=== PATIENT | male | born 1945 | race Two or more races ===

== ENCOUNTER → 2016-07-13 | Outpatient (CLI) | payer OTHER, MEDICARE ==
--- NOTE | 2016-07-13 16:22 | US ---
Ultrasound Venous Duplex Doppler right Arm History: Arm pain. I 48.91, M 79.639, M 79.89, pain and swelling. Findings: Ultrasound venous duplex/Doppler imaging of right internal jugular vein, subclavian vein, a xillary vein, cephalic vein, brachial vein, basilic vein, radial vein, and ulnar veins demonstrate no rmal compressibility, color flow, and Doppler flow without evidence of deep venous thrombosis. Impression: No deep venous thrombosis right arm. Findings and recommendations left with DILLON COLEY at 16:20 hour, 07/13/2016. Final report concurs with initial preliminary interpretation.
== END ==
LOC: FIMAGING 15:06
PROVIDERS: ATTEND Family Medicine
DX: M79.631 Pain in right forearm (principal); I48.91 Unspecified atrial fibrillation

== ENCOUNTER → 2016-07-13 | Outpatient (CLI) | payer OTHER, MEDICARE | LOC: BHFA 13:45 | PROVIDERS: ATTEND Internal Medicine Interventional Cardiology | DX: I48.91 Unspecified atrial fibrillation (principal) ==

== ENCOUNTER → 2016-07-28 | Outpatient (CLI) | payer OTHER, MEDICARE | LOC: BHFA 14:45 | PROVIDERS: ATTEND Internal Medicine Interventional Cardiology | DX: I48.91 Unspecified atrial fibrillation (principal); F41.9 Anxiety disorder, unspecified ==

== ENCOUNTER 2016-08-02 11:37 | Day surgery (SDC) | payer OTHER, MEDICARE ==
[2016-08-02] MEDS ORDERED: fentaNYL 100 MCG/2 ML INJ IVP ONE (11:47)
[2016-08-02] MEDS ORDERED: MIDAZOLAM 2 MG/2 ML VIAL IVP ONE (11:47)
[2016-08-02] MEDS ORDERED: PROPOFOL 200 MG/20 ML VIAL IVP ONE (11:47)
[2016-08-02] MEDS ORDERED: NS 500 ML IV ONE (11:47)
--- NOTE | 2016-08-02 12:11 | CPEKG ---
Heart Rate: 104 RR Interval: 577 QRSD Interval: 96 QT Interval: 344 QTC Interval: 453 QRS [place]: -57 T Wave [place]: 76 EKG Severity - ABNORMAL ECG - EKG Impression: ATRIAL FIBRILLATION VERSUS ATRIAL TACHYCARDIA EKG Impression: VENTRICULAR BIGEMINY EKG Impression: LEFT AXIS DEVIATION EKG Impression: LOW VOLTAGE IN FRONTAL LEADS EKG Impression: CONSIDER POSTERIOR INFARCT Electronically Signed By: Frank Etienne 03-Aug-2016 08:58:19
[2016-08-02 12:32] LABS: APTT 35.1 SEC (23.0-38.0); INR 1.47 (0.83-1.16); PROTIME(PATIENT) 17.8 SEC (12.0-15.0)
[2016-08-02 12:42] LABS: ANION GAP 10 mEq/L (8-16); CALCIUM 9.1 mg/dL (8.5-10.4); CARBON DIOXIDE 22 mEq/l (22-31); CHLORIDE 108 mEq/L (97-110); CREATININE 0.9 mg/dL (0.7-1.3); GLOMERULAR FILTRATION RATE > 60; GLUCOSE 105 mg/dL (70-100); MAGNESIUM 1.9 mg/dL (1.6-2.3); POTASSIUM 4.4 mEq/L (3.5-5.2); SODIUM 140 mEq/L (134-144)
[2016-08-02] MEDS ORDERED: PROPOFOL 200 MG/20 ML VIAL ONE (12:55)
--- NOTE | 2016-08-02 13:22 | CPEKG ---
Heart Rate: 84 RR Interval: 714 P-R Interval: 228 QRSD Interval: 98 QT Interval: 384 QTC Interval: 454 P [place]: 66 QRS [place]: 103 T Wave [place]: 42 EKG Severity - ABNORMAL ECG - EKG Impression: SINUS TACHYCARDIA EKG Impression: PAIRED VENTRICULAR PREMATURE COMPLEXES EKG Impression: FIRST DEGREE AV BLOCK EKG Impression: RIGHT AXIS DEVIATION EKG Impression: LOW VOLTAGE IN FRONTAL LEADS Electronically Signed By: Frank Etienne 03-Aug-2016 08:56:38
--- NOTE | 2016-08-02 13:24 | PDTEE1 ---
VINCE Cardioversion Procedure Indications: Atrial Fibrillation Consent: Signed and in Chart Anticoagulation: [place] Procedural Details: Pads were placed in anterior-posterior position. Synchronized cardioversion attempt #1: 200J Results: Normal sinus rhythm Conclusions: Successful Cardioversion (Follow-up EKG 1 week. Continue chronic anticoagulation for at least 30 days.) Patient Problems: Problems Problem Status Onset Tobacco abuse Acute Pseudogout Acute Anxiety and depression Acute Diarrhea, infectious, adult Acute Clostridium difficile infection Acute
== END 2016-08-02 15:15 | disposition home or self-care (01) ==
LOC: FCATH 11:37
PROVIDERS: ATTEND Internal Medicine Interventional Cardiology
PROC: 5A2204Z Restoration of Cardiac Rhythm, Single (ICD-10-PCS; principal; 2016-08-02)
DX: I48.91 Unspecified atrial fibrillation (principal); Z86.711 Personal history of pulmonary embolism; N40.0 Benign prostatic hyperplasia without lower urinary tract symptoms; M54.12 Radiculopathy, cervical region; Z86.010 Personal history of colon polyps; Z98.1 Arthrodesis status; F17.210 Nicotine dependence, cigarettes, uncomplicated
CPT/HCPCS: J2704

== ENCOUNTER → 2016-08-09 | Outpatient (CLI) | payer OTHER, MEDICARE | LOC: BHFA 11:00 | PROVIDERS: ATTEND Internal Medicine Cardiovascular Disease | DX: I48.0 Paroxysmal atrial fibrillation (principal); I49.3 Ventricular premature depolarization; I49.8 Other specified cardiac arrhythmias ==

== ENCOUNTER 2016-10-03 11:28 | Inpatient (IN) | payer OTHER, MEDICARE ==
[2016-10-03 12:43] LABS: PROTIME(PATIENT) 71.6 SEC (12.0-15.0)
[2016-10-03 12:48] LABS: INR 8.36 (0.83-1.16)
--- NOTE | 2016-10-03 12:53 | EDPHY ---
H & P Stated Complaint: l calf pain here to r/o clot - Personal History Current Tetanus/Diphtheria Vaccine: Yes Tetanus Vaccine Date: 2012 - Medical/Surgical History Hx Asthma: No Hx Chronic Respiratory Disease: Yes Hx Diabetes: No Hx Cardiac Disease: Yes Hx Renal Disease: No Hx Cirrhosis: No Hx Alcoholism: No Hx HIV/AIDS: No Hx Splenectomy or Spleen Trauma: No Other PMH: hx PE 1990, COPD, sepsis 12/2012 s/p tooth extraction, BPH, GERD, pseudo gout with surgery 08/14, spinal fusion prostate enlargement new, new chf 05/16, Cdiff 11/15 smoker and wearing a patch new bilat eye burn from non work related welding injury 12/06/13 - Social History Smoking Status: Current every day smoker <Porfirio Baez - Last Filed: 10/03/16 13:12> <Les Gonzalez - Last Filed: 10/03/16 19:26> Time Seen by Provider: 10/03/16 11:38 HPI/ROS: Chief complaint: Left calf pain History of present illness: This is a 71-year-old male on Coumadin for atrial fibrillation with a remote history of a PE in the mid 90s who presents to the emergency department for left calf pain. Patient reports the onset of symptoms over the last 3 days. He states it began after moving sheds around his property. Symptoms are slowly worsening. He denies associated signs or symptoms including no history of direct trauma, no abnormal coolness or paresthesias in the leg. No report of chest pain, shortness of breath or cough. No fevers. Review of systems: A 10 point review of systems was obtained and other than described above was negative (Porfirio Baez) - Physical Exam Exam: General Appearance: Alert, nontoxic. Eyes: Pupils equal and round no injection. Respiratory: Chest is non tender, lungs are clear to auscultation. Cardiovascular: regular rate and rhythm. DP and PT pulses 2+. Gastrointestinal: Abdomen is soft and non tender, no masses, bowel sounds normal. Musculoskeletal: Edema to the left calf as compared to the right. Tenderness to palpation over the left calf. Skin: No rashes or lesions. Neurologic: Sensation intact throughout the left lower extremity. (Porfirio Baez) Constitutional: Initial Vital Signs Temperature (C) 36.8 C 10/03/16 11:33 Heart Rate 77 10/03/16 11:33 Respiratory Rate 20 10/03/16 11:33 Blood Pressure 156/93 H 10/03/16 11:33 O2 Sat (%) 92 10/03/16 11:33 O2 Delivery Mode Room Air Allergies/Adverse Reactions: No Known Allergies Allergy (Unverified 10/03/16 11:30) Home Medications: Medication Instructions Recorded Cholecalciferol Vit D3 [Vitamin D3 4,000 units PO DAILY 10/03/16 2000 units tab (OTC)] Cyanocobalamin [Vitamin B12 (*)] 2,000 mcg PO DAILY 10/03/16 Herbals/Supplements -Info Only 1 ea PO DAILY 10/03/16 LORazepam [Ativan (*)] 1 mg PO BID 10/03/16 Pantoprazole Sodium [Protonix 40mg 40 mg PO BID 10/03/16 (*)] Percocet 5/325 (*) 1.5 tab PO BID PRN 10/03/16 Pregabalin [LYRICA] 100 mg PO TID 10/03/16 Warfarin Sodium [Coumadin 5MG (*)] 5 mg PO DAILY 10/03/16 Medical Decision Making - Diagnostics Imaging: Discussed imaging studies w/ on call Radiologist <Porfirio Baez - Last Filed: 10/03/16 13:12> Consult/Admit Bed Type: [facility] [address], [place] [address] <Les Gonzalez - Last Filed: 10/03/16 19:26> - Diagnostics Imaging Results: Imaging Impressions Extremity Venous Study 10/03/16 11:43 Impression: 1. Left proximal calf hematoma. 2. No deep venous thrombosis left leg. Findings discussed with Emergency Department physician's pharmacy affairs assistant, Porfirio Baez, at 1245 hours, 10/03/2016. Final report concurs with initial preliminary interpretation. Differential Diagnosis: Patient is discussed with my secondary supervising physician Dr. Les Gonzalez. Patient presents to the emergency department for left leg pain. His leg is neurovascularly intact. Ultrasound did not show DVT but a large hematoma. He is significantly supratherapeutic on his Coumadin with an INR of over 8. Patient will be admitted to the hospitalist service for reversal of his Coumadin. Plan has been discussed with the patient and family who voiced understanding and agreement with it. (Porfirio Baez) Other Provider: PHYSICIAN DOCUMENTATION: The patient was evaluated and managed by the Physician [employer] Ax Consultant and myself. I have reviewed the chart and agree with the findings and plan of care as documented. In addition, I examined the patient myself at 1310. History confirmed as nontraumatic left leg pain, on Coumadin for primarily for atrial fibrillation. Physical findings as follows: Normal motor and sensory in the left foot. Dorsalis pedis pulse intact. Compartments soft. Discussed with Dr. Tavares by phone who requests plasma and not PCC. Vitamin K 10 IV, 2 units fresh frozen plasma. Does not appear life- threatening. Does not have compartment syndrome at this time. Seen personally by Dr. Garcia in the emergency department. I am the secondary supervising physician. (Les Gonzalez) - Data Points Laboratory Results: Laboratory Results 10/03/16 11:55 10/03/16 11:55 10/03/16 10/03/16 10/03/16 11:55 11:55 11:55 WBC 7.67 10^3/uL 10^3/uL (3.80-9.50) RBC 5.30 10^6/uL 10^6/uL (4.40-6.38) Hgb 17.5 g/dL g/dL (13.7-17.5) Hct 50.8 % % (40.0-51.0) MCV 95.8 fL fL (81.5-99.8) MCH 33.0 pg pg (27.9-34.1) MCHC 34.4 g/dL g/dL (32.4-36.7) RDW 13.1 % % (11.5-15.2) Plt Count 193 10^3/uL 10^3/uL (150-400) MPV 8.9 fL fL (8.7-11.7) Neut % (Auto) 71.5 % % (39.3-74.2) Lymph % (Auto) 17.5 % % (15.0-45.0) [place] % (Auto) 8.7 % % (4.5-13.0) Eos % (Auto) 1.0 % % (0.6-7.6) Baso % (Auto) 0.9 % % (0.3-1.7) Nucleat RBC Rel Count 0.0 % % (0.0-0.2) Absolute Neuts (auto) 5.48 10^3/uL 10^3/uL (1.70-6.50) Absolute Lymphs (auto) 1.34 10^3/uL 10^3/uL (1.00-3.00) Absolute Monos (auto) 0.67 10^3/uL 10^3/uL (0.30-0.80) Absolute Eos (auto) 0.08 10^3/uL 10^3/uL (0.03-0.40) Absolute Basos (auto) 0.07 10^3/uL 10^3/uL (0.02-0.10) Absolute Nucleated RBC 0.00 10^3/uL 10^3/uL (0-0.01) Immature Gran % 0.4 % % (0.0-1.1) Immature Gran # 0.03 10^3/uL 10^3/uL (0.00-0.10) PT 71.6 SEC H SEC (12.0-15.0) INR 8.36 H* (0.83-1.16) Sodium 137 mEq/L mEq/L (134-144) Potassium 4.5 mEq/L mEq/L (3.5-5.2) Chloride 106 mEq/L mEq/L (97-110) Carbon Dioxide 20 mEq/l L mEq/l (22-31) Anion Gap 11 mEq/L mEq/L (8-16) BUN 14 mg/dL mg/dL (7-23) Creatinine 0.8 mg/dL mg/dL (0.7-1.3) Estimated GFR > 60 Glucose 102 mg/dL H mg/dL (70-100) Calcium 9.0 mg/dL mg/dL (8.5-10.4) Medications Given: Discontinued Medications Phytonadione 10 mg/ Sodium (Chloride) 51 mls @ 102 mls/hr IV ONCE ONE Stop: 10/03/16 13:34 Last Admin: 10/03/16 13:31 Dose: 51 mls Departure <Porfirio Baez - Last Filed: 10/03/16 13:12> <Les Gonzalez - Last Filed: 10/03/16 19:26> - Departure Disposition: [facility] Acute Clinical Impression: Supratherapeutic INR Hematoma of left lower extremity Qualifiers: Encounter type: initial encounter Qualified Code(s): S80.12XA - Contusion of left lower leg, initial encounter Condition: Good
[2016-10-03] MEDS ORDERED: PHYTONADIONE 10 MG in NS 50 ML IV ONE (13:05)
[2016-10-03 13:11] LABS: % IMMATURE GRANULYOCYTES 0.4 % (0.0-1.1); ABSOLUTE IMMATURE GRANULOCYTES 0.03 10^3/uL (0.00-0.10); ADD DIFF? NO; ADD MORPH? NO; ADD SCAN? NO; ATYPICAL LYMPHOCYTE FLAG 0 (0-99); FRAGMENT RBC FLAG 0 (0-99); HEMATOCRIT 50.8 % (40.0-51.0); HEMOGLOBIN 17.5 g/dL (13.7-17.5); LEFT SHIFT FLG 0 (0-99); LIPEMIA HEMOLYSIS FLAG 90 (0-99); MEAN CELL HEMOGLOBIN CONCENTR. 34.4 g/dL (32.4-36.7); MEAN CELL VOLUME 95.8 fL (81.5-99.8); MEAN PLATELET VOLUME 8.9 fL (8.7-11.7); PLATELET CLUMPS FLAG 0 (0-99); PLATELET COUNT 193 10^3/uL (150-400); RED CELL DISTRIBUTION WIDTH 13.1 % (11.5-15.2)
[2016-10-03 13:20] LABS: ANION GAP 11 mEq/L (8-16); CARBON DIOXIDE 20 mEq/l (22-31); CHLORIDE 106 mEq/L (97-110); CREATININE 0.8 mg/dL (0.7-1.3); GLOMERULAR FILTRATION RATE > 60; GLUCOSE 102 mg/dL (70-100); POTASSIUM 4.5 mEq/L (3.5-5.2); SODIUM 137 mEq/L (134-144)
[2016-10-03] MEDS ORDERED: ONDANSETRON DISINTEGRATING 4 MG TAB PO PRN (14:22)
[2016-10-03] MEDS ORDERED: HYDROmorphONE/DILAUDID 1 MG/ML SYR IVP PRN (14:22)
[2016-10-03] MEDS ORDERED: ONDANSETRON 4 MG/2 ML VIAL IVP PRN (14:22)
[2016-10-03] MEDS ORDERED: ACETAMINOPHEN 325 MG TAB PO PRN (14:22)
[2016-10-03] MEDS ORDERED: OXYCODONE/APAP 5/325 TAB PO PRN (16:01)
[2016-10-03] MEDS: oxyCODONE IR 5 MG TAB PO PRN ×2 (16:47→21:22)
[2016-10-03] MEDS: PREGABALIN 100 MG CAP PO SCH ×2 (16:47→21:22)
--- NOTE | 2016-10-03 16:59 | PDGENHP ---
History and Physical - Chief Complaint leg pain - History of Present Illness 71 yo M with PMH of a fib as well as remote hx of PE on chronic AC presenting with leg pain and swelling in the setting of INR of 8. Patient was recently switched to coumadin from eliquis by his fitness worker, about 2 weeks ago, as patient was concerned that the levels of eliquis couldn't be checked and he was having issues with easy bruising. He thought he was doing ok with this but had not checked his INR level recently. He has banged his lower left leg a couple of times this week, but today noted that it was swelling and tight and very painful. The pain began to extend up his thigh as well. He was having difficulty walking. He has not had loss of sensation or coldness in the foot or leg. It seems to hurt more when it is elevated, and is improved with walking. He has not had fever or chills. He has not have any other new complaints. History Information - Allergies/Home Medication List Allergies/Adverse Reactions: No Known Allergies Allergy (Unverified 10/03/16 11:30) Home Medications: Cholecalciferol Vit D3 [Vitamin D3 2000 units tab (OTC)] 4,000 units PO DAILY [Last Taken 10/03/16] Cyanocobalamin [Vitamin B12 (*)] 2,000 mcg PO DAILY 10/03/16 [Last Taken ] Herbals/Supplements -Info Only 1 ea PO DAILY 10/03/16 [Last Taken Unknown] LORazepam [Ativan (*)] 1 mg PO BID 10/03/16 [Last Taken 10/03/16] Pantoprazole Sodium [Protonix 40mg (*)] 40 mg PO BID 10/03/16 [Last Taken ] Percocet 5/325 (*) 1.5 tab PO BID PRN 10/03/16 [Last Taken 10/03/16] Pregabalin [LYRICA] 100 mg PO TID 10/03/16 [Last Taken 10/03/16] Warfarin Sodium [Coumadin 5MG (*)] 5 mg PO DAILY 10/03/16 [Last Taken 10/03/16] I have personally reviewed and updated: family history, medical history, social history, surgical history - Past Medical History atrial fibrillation, CHF, COPD, GERD, pulmonary embolism (1990) Additional medical history: BPH. lumbar radiculopathy. pseudogout. c diff - Surgical History Reports: spinal surgery (spinal fusion) Additional surgical history: turp. elbow surgery. esophageal stricture dilation - Family History Positive for: non-pertinent - Social History Smoking Status: Current every day smoker Alcohol Use: Rarely Drug Use: None Additional social history: Review of Systems ROS: 10pt was reviewed & negative except for what was stated in HPI & below Physical Exam Temp Pulse Resp BP Pulse Ox 36.4 C 61 20 120/87 H 94 10/03/16 16:06 10/03/16 16:06 10/03/16 16:06 10/03/16 16:06 10/03/16 16:06 Constitutional: no apparent distress, appears nourished Eyes: PERRL Ears, Nose, Mouth, Throat: moist mucous membranes, hearing normal Cardiovascular: regular rate and rhythym, no murmur, rub, or gallop, edema Respiratory: no respiratory distress, no rales or rhonchi Gastrointestinal: normoactive bowel sounds, soft, non-tender abdomen Genitourinary: no bladder tenderness Skin: warm, normal color Musculoskeletal: full muscle strength, asymmetric calves, muscular tenderness Neurologic: AAOx3, sensation intact bilaterally, No weakness, No numbness Psychiatric: interacting appropriately, not anxious, not encephalopathic Lab Data & Imaging Review 10/03/16 11:55 10/03/16 11:55 WBC 7.67 10^3/uL (3.80-9.50) 10/03/16 11:55 RBC 5.30 10^6/uL (4.40-6.38) 10/03/16 11:55 Hgb 17.5 g/dL (13.7-17.5) 10/03/16 11:55 Hct 50.8 % (40.0-51.0) 10/03/16 11:55 MCV 95.8 fL (81.5-99.8) 10/03/16 11:55 MCH 33.0 pg (27.9-34.1) 10/03/16 11:55 MCHC 34.4 g/dL (32.4-36.7) 10/03/16 11:55 RDW 13.1 % (11.5-15.2) 10/03/16 11:55 Plt Count 193 10^3/uL (150-400) 10/03/16 11:55 MPV 8.9 fL (8.7-11.7) 10/03/16 11:55 Neut % (Auto) 71.5 % (39.3-74.2) 10/03/16 11:55 Lymph % (Auto) 17.5 % (15.0-45.0) 10/03/16 11:55 [place] % (Auto) 8.7 % (4.5-13.0) 10/03/16 11:55 Eos % (Auto) 1.0 % (0.6-7.6) 10/03/16 11:55 Baso % (Auto) 0.9 % (0.3-1.7) 10/03/16 11:55 Nucleat RBC Rel Count 0.0 % (0.0-0.2) 10/03/16 11:55 Absolute Neuts (auto) 5.48 10^3/uL (1.70-6.50) 10/03/16 11:55 Absolute Lymphs (auto) 1.34 10^3/uL (1.00-3.00) 10/03/16 11:55 Absolute Monos (auto) 0.67 10^3/uL (0.30-0.80) 10/03/16 11:55 Absolute Eos (auto) 0.08 10^3/uL (0.03-0.40) 10/03/16 11:55 Absolute Basos (auto) 0.07 10^3/uL (0.02-0.10) 10/03/16 11:55 Absolute Nucleated RBC 0.00 10^3/uL (0-0.01) 10/03/16 11:55 Immature Gran % 0.4 % (0.0-1.1) 10/03/16 11:55 Immature Gran # 0.03 10^3/uL (0.00-0.10) 10/03/16 11:55 PT 71.6 SEC (12.0-15.0) H 10/03/16 11:55 INR 8.36 (0.83-1.16) H* 10/03/16 11:55 Sodium 137 mEq/L (134-144) 10/03/16 11:55 Potassium 4.5 mEq/L (3.5-5.2) 10/03/16 11:55 Chloride 106 mEq/L (97-110) 10/03/16 11:55 Carbon Dioxide 20 mEq/l (22-31) L 10/03/16 11:55 Anion Gap 11 mEq/L (8-16) 10/03/16 11:55 BUN 14 mg/dL (7-23) 10/03/16 11:55 Creatinine 0.8 mg/dL (0.7-1.3) 10/03/16 11:55 Estimated GFR > 60 10/03/16 11:55 Glucose 102 mg/dL (70-100) H 10/03/16 11:55 Calcium 9.0 mg/dL (8.5-10.4) 10/03/16 11:55 Patient ABO/Rh A POSITIVE 10/03/16 13:22 Visualized and Interpreted imaging results: Yes Interpretation: US lower extremity with left proximal calf hematoma Assessment & Plan Assessment: Hematoma of left lower extremity (Acute) Supratherapeutic INR (Acute) 71 yo M with hx of a fib on chronic AC pw INR of 8 and calf hematoma # calf hematoma: extensive with significant tenderness on exam but pulses present, warm and normal ROM present. INR reversed as next. Surgery consulted and do not believe this is c/w compartment syndrome but they will follow while he is in house. Will monitor overnight # supratherapeutic INR: patient newly on coumadin and likely has been on too high of a dose and has not had sufficient time on medication to reach steady state. Has received vitamin K/FFP and will repeat INR to be sure it is trending down. Consulted cardiology as next # a fib: sounds as if he is in SR currently, will check ecg. Not on chronic rate control medications by current med list. Cardiology consulted. Chads vasc low so unclear if he will continue to require AC or could transition to asa, will defer to cardiology however. # hx of PE: remote, as above # copd: chronic w/o e/o acute exacerbation # dispo: observation status, will likely need < 48 hours stay for eval/mgmt of above Patient new to my care. Old records reviewed and summarized as above. Care plan reviewed with ER doctor, cardiology and surgery.
--- NOTE | 2016-10-03 18:13 | CPEKG ---
Heart Rate: 77 RR Interval: 779 P-R Interval: 220 QRSD Interval: 108 QT Interval: 392 QTC Interval: 444 P [place]: 24 QRS [place]: -51 T Wave [place]: 0 EKG Severity - ABNORMAL ECG - EKG Impression: SINUS RHYTHM EKG Impression: FIRST DEGREE AV BLOCK EKG Impression: BORDERLINE IVCD WITH LAD EKG Impression: LOW VOLTAGE IN FRONTAL LEADS EKG Impression: BORDERLINE T ABNORMALITIES, INFERIOR LEADS Electronically Signed By: Frank Etienne 04-Oct-2016 14:46:22
[2016-10-03 18:23] LABS: INR 2.68 (0.83-1.16); PROTIME(PATIENT) 28.8 SEC (12.0-15.0)
[2016-10-03] MEDS: LORazepam 1 MG TAB PO SCH (21:18)
[2016-10-03] MEDS: PANTOPRAZOLE SODIUM 40 MG TAB PO SCH (21:18)
[2016-10-03] MEDS: NICOTINE 21 MG/24 HR PATCH TD SCH (21:18)
[2016-10-04 06:13] LABS: % IMMATURE GRANULYOCYTES 0.7 % (0.0-1.1); ABSOLUTE IMMATURE GRANULOCYTES 0.04 10^3/uL (0.00-0.10); ADD DIFF? NO; ADD MORPH? NO; ADD SCAN? NO; ATYPICAL LYMPHOCYTE FLAG 10 (0-99); FRAGMENT RBC FLAG 0 (0-99); HEMATOCRIT 46.7 % (40.0-51.0); LEFT SHIFT FLG 0 (0-99); LIPEMIA HEMOLYSIS FLAG 90 (0-99); MEAN CELL HEMOGLOBIN 33.3 pg (27.9-34.1); MEAN CELL HEMOGLOBIN CONCENTR. 34.3 g/dL (32.4-36.7); MEAN CELL VOLUME 97.1 fL (81.5-99.8); MEAN PLATELET VOLUME 9.1 fL (8.7-11.7); PLATELET CLUMPS FLAG 0 (0-99); PLATELET COUNT 155 10^3/uL (150-400); RED BLOOD CELL COUNT 4.81 10^6/uL (4.40-6.38); RED CELL DISTRIBUTION WIDTH 13.1 % (11.5-15.2)
[2016-10-04 06:27] LABS: INR 4.06 (0.83-1.16); PROTIME(PATIENT) 40.2 SEC (12.0-15.0)
[2016-10-04] MEDS: PANTOPRAZOLE SODIUM 40 MG TAB PO SCH ×2 (06:30→20:37)
[2016-10-04] MEDS: PREGABALIN 100 MG CAP PO SCH ×3 (06:30→20:37)
[2016-10-04] MEDS: oxyCODONE IR 5 MG TAB PO PRN ×6 (06:30→23:23)
[2016-10-04 06:36] LABS: ANION GAP 8 mEq/L (8-16); CALCIUM 8.7 mg/dL (8.5-10.4); CARBON DIOXIDE 23 mEq/l (22-31); CHLORIDE 105 mEq/L (97-110); CREATININE 0.8 mg/dL (0.7-1.3); GLOMERULAR FILTRATION RATE > 60; GLUCOSE 97 mg/dL (70-100); POTASSIUM 4.2 mEq/L (3.5-5.2); SODIUM 136 mEq/L (134-144)
[2016-10-04] MEDS ORDERED: PHYTONADIONE 10 MG in NS 50 ML IV ONE (08:59)
[2016-10-04] MEDS: CYANO/VITAMIN B12 1000 MCG TAB PO SCH (09:17)
[2016-10-04] MEDS: NICOTINE 21 MG/24 HR PATCH TD SCH (09:17)
[2016-10-04] MEDS: CHOLECALCIFEROL VIT D3 2,000 UNITS TAB/CAP PO SCH (09:17)
[2016-10-04] MEDS: LORazepam 1 MG TAB PO SCH ×2 (09:18→20:37)
--- NOTE | 2016-10-04 09:35 | PDCARPN ---
Cardiology Progress Note Chief Complaint: Left lower extremity pains. Initial concerns (given history of PE) for DVT. Assessment/Plan: Assessment: Patient is a 71 y/o male, known to [facility] (Dr. Venu Hatfield), with history of pAF (on coumadin at present with [id number] score of 2), COPD, depression, BPH s/p TURP, arthralgias, and esophageal stricture, who presented to [facility] yesterday with complaints of left lower extremity pains. Initial concerns about DVT with history of pulmonary embolism (1990), but labs revealed a supratherapeutic INR ( >8). Ultrasound with large haematoma noted ([id number]). Given the INR and this finding, Trauma service reportedly assessed the leg for compartment syndrome. Reports that this was not noted at the time of assesssment in the ER. Pains to the leg were noted overnight, and the leg continues to be painful and rather taught. Distal pulses were noted today. No cardiovascular complaints of chest pains or pressure. No PND or orthopnea. From a cardiac perspective, patient was previously on NOAC therapy (Eliquis), but was concerned about the inability to monitor levels, and was switched to Coumadin (dosed at 5 mg per day). No reassessment of the INR was obtained for reasons not clear. INR last night was 2.68 (down from 8.36), but today, INR was elevated to 4.06. Telemetry with normal sinus rhythm yesterday. Plan: (1) Continue hold on coumadin/Warfarin - uncertain with Vit K and FFP why the INR was elevated as is has today - would ensure further Vit K and reassessment of the INR tonight (2) Concerns about compartment symptoms remain with the tension that is noted on physical examination (3) Given the left lower extremity condition and current normal sinus rhythm, would maintain hold on anticoagulation (4) Trauma surgery should reassess patient for compartment syndrome ALANA Subjective: No active cardiovascular complaints. Chief complaint continues to be left lower extremity (calf) pains. Reviewed/Discussed With: hospitalist, multidisciplinary team Time Spent With Patient: 20 minutes Objective: Vital Signs (8 Hrs) Temp Pulse Resp BP Pulse Ox 10/04/16 07:37 36.6 C 75 22 H 141/80 H 91 L 10/04/16 04:00 36.9 C 72 17 136/75 H 91 L Intake/Output (24 Hrs) 10/03/16 10/04/16 10/05/16 05:59 05:59 05:59 Intake Total 900 500 Output Total 2400 200 Balance -1500 300 Intake: Oral (ml) 400 500 IV Infused (ml) 250 Fresh Frozen Plasma (ml) 250 Output: Urine (ml) 2400 200 Urinal 2400 200 Other: Weight 74.888 kg Intake Quantity Yes Sufficient Number of Voids 2 Urinal 2 Result Diagrams: 10/04/16 05:12 10/04/16 05:12 Cardiac Labs: Laboratory Tests 10/03/16 10/03/16 10/04/16 11:55 18:00 05:12 INR 8.36 H* 2.68 H 4.06 H Telemetry: normal sinus rhythm was noted yesterday on monitor Echocardiogram: not performed. - Physical Exam Constitutional: WDWN, healthy appearing, general pain Eyes: PERRL, EOMI Ears, Nose, Mouth, Throat: moist mucous membranes Cardiovascular: regular rate and rhythm, no murmurs, no rubs Peripheral Pulses: 1+: dorsalis-pedis (L), 2+: dorsalis-pedis (R) Respiratory: clear to auscultate bilat, no crackles, no wheezes Gastrointestinal: normoactive bowel sounds Skin: no rashes, no abrasions, no ulcers, other (tension and warmth to palpation to the left calf) Musculoskeletal: muscular tenderness Neurologic: AAOx3, CN II-XII grossly intact Psychiatric: cooperative, interactive, following commands ICD10 Worksheet Patient Problems: Problems Problem Status Onset Hematoma of left lower extremity Acute Supratherapeutic INR Acute Anxiety and depression Acute Clostridium difficile infection Acute Diarrhea, infectious, adult Acute Pseudogout Acute Tobacco abuse Acute
--- NOTE | 2016-10-04 10:43 | GCON ---
[f rep st] CONSULTATION REFERRING PHYSICIAN: Michelle Tavares MD REASON FOR CONSULTATION: Evaluate for compartment syndrome. HISTORY OF PRESENT ILLNESS: This patient was admitted yesterday. His anticoagulation had been prolonged, and he had a several-day history of a distal thigh hematoma which had progressed down to the proximal calf. I saw the patient briefly and unofficially in the ER yesterday just so I would understand his baseline in case further evaluation was needed. At that point, he had a fullness in his distal thigh but it was most prominent in the subcutaneous tissue of his posterior proximal calf. He had normal capillary refill. He had some swelling at the level of the ankle. It was difficult to get a posterior tibial pulse at that time, but dorsalis pedis was full and bounding. Capillary refill was normal. His INR was 8, and he did receive PCC. His INR dropped to 0.6 last evening at 6 p.m. This morning it is back up to 4.06 which is not unexpected. He has received, as I understand, vitamin K as well. I was asked to come see him today to make sure we do not have a progressive compartment issue. On examining the foot, it is warm to the touch. He does not have any pain on plantar or dorsiflexion of his foot. Capillary refill is less than 2 seconds. There is a bounding dorsalis pedis pulse. His leg was elevated further. At this point, with a prolonged INR and an essentially normal examination, I do not see an advantage in placing a [place] needle as it may cause more bleeding. The fluid is most probably in subcutaneous tissue in that it seems to have moved by gravity down from the distal thigh. Certainly, if it becomes necessary, we can obtain a CAT scan to find the exact location of the fluid. I doubt it is liquid at this time, so I do not think that aspiration would be helpful, and for that reason, an ultrasound has not been ordered. I recommend that we follow him serially, that we elevate his lower leg above the level of his heart. I recommend the use a heating pad to promote reabsorption of the blood, and that we will continue to correct his anticoagulation. At this point, I do not detect an acute issue which would require surgical intervention. /[id number]/MODL MTDD
--- NOTE | 2016-10-04 12:36 | HOSPPROG ---
Hospitalist Progress Note Assessment/Plan: 71 yo M w/hx of a fib as well as remote PE on chronic AC presenting with supratherapeutic INR and leg pain and large calf hematoma # calf hematoma: overnight swelling has increased to the foot and the calf is more tense, INR reversed yesterday but has trended back up today to 4. Surgery consulted and patient evaluated at bedside with Dr. Garcia-foot is warm, cap refill normal, ROM only slightly decreased, pain moderate and do not suspect compartment syndrome at this time. Will keep leg elevated, warm compresses and continue mgmt of INR as next. # supratherapeutic INR: patient newly on coumadin and presented with INR of 8-- sounds as if he has not had follow up since initiating med (previously on eliquis). Today INR up again to 4, will give vitamin K again, recheck this afternoon. Will continue to hold AC and defer to cardiology when to resume. In terms of PE in 1990, he has been off of AC for that for many years and does not need tx for remote, reportedly post-operative, PE. # a fib: currently in SR, reversing AC as above, first episode in July of this year and started on eliquis initially, switched to coumadin 2 weeks ago. His CHADS-vasc score is 1 for age only so unclear that patient truly requires AC for this at any rate. Again, cardiology involved and can decide after dc, regardless he needs AC reversed now. # hx of PE: remote, as above, no longer requiring tx # copd: chronic w/o e/o acute exacerbation # dispo: IP status, will need > 48 hours stay for eval/mgmt of above Care plan reviewed with general surgeon at bedside as well as with cardiology and care plan reviewed with patient's daughter Subjective: patient notes that his leg is more swollen today and a bit more painful, able to walk and rom is unchanged Objective: Vital Signs Temp Pulse Resp BP Pulse Ox 36.6 C 68 18 145/90 H 91 L 10/04/16 11:27 10/04/16 11:27 10/04/16 11:27 10/04/16 11:27 10/04/16 11:27 Laboratory Results 10/04/16 05:12 10/04/16 05:12 05/02/17 05/03/17 05/04/17 05:59 05:59 05:59 Intake Total 900 500 Output Total 2400 200 Balance -1500 300 PT 40.2 SEC (12.0-15.0) H D 10/04/16 05:12 INR 4.06 (0.83-1.16) H 10/04/16 05:12 awake alert nad anicteric op clear rrr no mrg cta b soft nt nd lle tense to knee, warm, foot warm, cap refill 1-2 sec, dp pulse palpable oriented appropriate - Time Spent With Patient Time Spent with Patient: greater than 35 minutes Time Spent with Patient: Greater than 35 minutes spent on this patients care, greater than 50% of time spent counseling, educating, and coordinating care regarding the above mentioned plan. ICD10 Worksheet Patient Problems: Problems Problem Status Onset Hematoma of left lower extremity Acute Supratherapeutic INR Acute Anxiety and depression Acute Clostridium difficile infection Acute Diarrhea, infectious, adult Acute Pseudogout Acute Tobacco abuse Acute
[2016-10-04 14:23] LABS: INR 1.99 (0.83-1.16); PROTIME(PATIENT) 22.7 SEC (12.0-15.0)
[2016-10-04 23:48] LABS: COLOR PALE YELLOW; LEUKOCYTE ESTERASE,URINE NEGATIVE (NEGATIVE); NITRITE,URINE NEGATIVE (NEGATIVE)
[2016-10-05] MEDS: TAMSULOSIN HCL 0.4 MG CAP PO SCH ×2 (00:03→08:23)
[2016-10-05] MEDS: oxyCODONE IR 5 MG TAB PO PRN ×4 (05:45→20:07)
[2016-10-05] MEDS: PANTOPRAZOLE SODIUM 40 MG TAB PO SCH ×2 (05:45→17:14)
[2016-10-05 05:52] LABS: INR 1.27 (0.83-1.16); PROTIME(PATIENT) 15.9 SEC (12.0-15.0)
[2016-10-05] MEDS: NICOTINE 21 MG/24 HR PATCH TD SCH (08:21)
[2016-10-05] MEDS: CHOLECALCIFEROL VIT D3 2,000 UNITS TAB/CAP PO SCH (08:22)
[2016-10-05] MEDS: CYANO/VITAMIN B12 1000 MCG TAB PO SCH (08:22)
[2016-10-05] MEDS: PREGABALIN 100 MG CAP PO SCH ×3 (08:23→20:07)
[2016-10-05] MEDS: LORazepam 1 MG TAB PO SCH ×2 (08:23→20:10)
--- NOTE | 2016-10-05 11:57 | PDCARPN ---
Cardiology Progress Note Chief Complaint: Ongoing discomfort to the left lower extremity...improvements reported Assessment/Plan: Assessment: 10-05-16 Patient has appreciated improvement in leg pains. Trauma with note and work up not suggestive of compartment syndrome. INR has normalized, and given the haematoma, and CVA risk (with atrial fibrillation) would maintain cessation of therapy for the time being. Fair sleep overnight. No cardiovascular complaints of chest pains or pressure. Pain meds have resulted in control of the discomfort to the left lower extremity. 10-04-16 Patient is a 71 y/o male, known to [facility] (Dr. Venu Hatfield), with history of pAF (on coumadin at present with [id number] score of 2), COPD, depression, BPH s/p TURP, arthralgias, and esophageal stricture, who presented to [facility] yesterday with complaints of left lower extremity pains. Initial concerns about DVT with history of pulmonary embolism (1990), but labs revealed a supratherapeutic INR ( >8). Ultrasound with large haematoma noted (10X4X2). Given the INR and this finding, Trauma service reportedly assessed the leg for compartment syndrome. Reports that this was not noted at the time of assesssment in the ER. Pains to the leg were noted overnight, and the leg continues to be painful and rather taught. Distal pulses were noted today. No cardiovascular complaints of chest pains or pressure. No PND or orthopnea. From a cardiac perspective, patient was previously on NOAC therapy (Eliquis), but was concerned about the inability to monitor levels, and was switched to Coumadin (dosed at 5 mg per day). No reassessment of the INR was obtained for reasons not clear. INR last night was 2.68 (down from 8.36), but today, INR was elevated to 4.06. Telemetry with normal sinus rhythm yesterday. Plan: (1) maintain cessation of anticoagulation - would consider resumption after outpatient follow up with either PCP or cardiology (2) Discharge planning Subjective: No cardiovascular complaints. Lower extremity pains are absent at present Time Spent With Patient: 15 minutes Objective: Vital Signs (8 Hrs) Temp Pulse Resp BP Pulse Ox 10/05/16 11:29 36.9 C 84 18 106/66 89 L 10/05/16 07:41 37.4 C 87 18 120/72 89 L 10/05/16 04:00 37.2 C 90 18 90/72 L 90 L Intake/Output (24 Hrs) 10/04/16 10/05/16 10/06/16 05:59 05:59 05:59 Intake Total 900 Output Total 2049 Balance -1150 Intake: Oral (ml) 900 Output: Urine (ml) 2049 Urinal 2049 Other: Intake Quantity Yes Sufficient Number of Voids Urinal 3 Result Diagrams: 10/04/16 05:12 10/04/16 05:12 Telemetry: Sinus tachycardia was noted this morning - Physical Exam Constitutional: WDWN, healthy appearing, no apparent distress Eyes: PERRL, EOMI Ears, Nose, Mouth, Throat: moist mucous membranes Cardiovascular: regular rate and rhythm (tachycardia this morning) Peripheral Pulses: 2+: dorsalis-pedis (R), dorsalis-pedis (L) Respiratory: clear to auscultate bilat, no crackles, no wheezes Gastrointestinal: normoactive bowel sounds Skin: other (tenderness to palpitation of the left lower extremity) Musculoskeletal: asymmetric calves, muscular tenderness Neurologic: AAOx3, CN II-XII grossly intact Psychiatric: cooperative, interactive, following commands ICD10 Worksheet Patient Problems: Problems Problem Status Onset Hematoma of left lower extremity Acute Supratherapeutic INR Acute Anxiety and depression Acute Clostridium difficile infection Acute Diarrhea, infectious, adult Acute Pseudogout Acute Tobacco abuse Acute
--- NOTE | 2016-10-05 14:47 | HOSPPROG ---
Hospitalist Progress Note Assessment/Plan: 71 yo M w/hx of a fib as well as remote PE on chronic AC presenting with supratherapeutic INR and leg pain and large calf hematoma. Today is my first encounter with the patient. Chart reviewed. # calf hematoma reviewed Dr Oscar's note not likely compartment syndrome/pain is less/ palpable pulses INR is 1.27 elevating his leg spoke with Dr Garcia and Dr Chino will see today # supratherapeutic INR resolved with treatment of Vitamin K was started recently on coumadin and presented w an INR of 8 hx of PE and hx of AFib will defer to cardiology as when to resume # a fib: reviewed quality assurance monitor and is in sinus rhythm CHADS-vasc score is 1 treatment per cardiology # hx of PE: remote, as above, no longer requiring tx # copd: chronic w/o e/o acute exacerbation # dispo: IP status, will need > 48 hours stay for eval/mgmt of above Subjective: Nicolas is worried about his left knee area/ sore from the swelling. Thinks the pain in his left leg is better. Objective: Vital Signs Temp Pulse Resp BP Pulse Ox 36.9 C 84 18 106/66 89 L 10/05/16 11:29 10/05/16 11:29 10/05/16 11:29 10/05/16 11:29 10/05/16 11:29 10/04/16 10/05/16 10/06/16 05:59 05:59 05:59 Intake Total 900 680 Output Total 2050 Balance -1150 680 PT 15.9 SEC (12.0-15.0) H 10/05/16 05:22 INR 1.27 (0.83-1.16) H 10/05/16 05:22 - Physical Exam Constitutional: uncomfortable Eyes: PERRL Ears, Nose, Mouth, Throat: hearing normal Cardiovascular: regular rate and rhythym Respiratory: no respiratory distress Gastrointestinal: normoactive bowel sounds Skin: other (left lower extremity, skin tight, has some ecchymosis around ankle , posterior calf area/ strong dp/pt pulses) Neurologic: AAOx3 Psychiatric: interacting appropriately, not anxious ICD10 Worksheet Patient Problems: Problems Problem Status Onset Hematoma of left lower extremity Acute Supratherapeutic INR Acute Anxiety and depression Acute Clostridium difficile infection Acute Diarrhea, infectious, adult Acute Pseudogout Acute Tobacco abuse Acute
[2016-10-05] MEDS ORDERED: LACTULOSE 20 GM/30 ML UDCUP PO PRN (16:09)
[2016-10-05] MEDS ORDERED: BISACODYL 10 MG SUPP PR PRN (16:09)
[2016-10-05] MEDS ORDERED: MAGNESIUM HYDROXIDE 30 ML UDCUP PO PRN (16:09)
[2016-10-05] MEDS: POLYETHYLENE GLYCOL 3350 17 GM PKT PO SCH (17:10)
[2016-10-05] MEDS: SENNOSIDES/DOCUSATE SODIUM TAB PO SCH (20:07)
--- NOTE | 2016-10-05 20:33 | SOAPPROG ---
SOAP Progress Note Assessment/Plan: Assessment: 71 MALE WITH A LEFT CALF HEMATOMA AFTER DIRECT INJURY WELL HIS INR WAS MARKEDLY ELEVATED / HE IS COMFORTABLE / VITAL SIGNS ARE STABLE AFEBRILE / LEFT CALF HEMATOMA IS TENDER AND REASONABLY TENSE BUT WITH FULL RANGE OF MOTION OF HIS FOOT AND FULL PULSES HEMATOCRIT IS STABLE AND INR IS DOWN TO NORMAL RISKS AND OPTIONS BEEN FULLY DISCUSSED INCLUDING DRAINAGE OF THE HEMATOMA VERSUS OBSERVATION Plan: WITH A PLAN IS CONTINUED OBSERVATION /DRAINAGE IF SYMPTOMS WORSEN / HOLD THE COUMADIN 10/05/16 20:31 Objective: Vital Signs Temp Pulse Resp BP Pulse Ox 36.9 C 90 19 108/59 L 91 L 10/05/16 19:51 10/05/16 19:51 10/05/16 19:51 10/05/16 19:51 10/05/16 19:51 10/04/16 10/05/16 10/06/16 05:59 05:59 05:59 Intake Total 900 680 Output Total 2050 400 Balance -1150 280 PT 15.9 SEC (12.0-15.0) H 10/05/16 05:22 INR 1.27 (0.83-1.16) H 10/05/16 05:22 ICD10 Worksheet Patient Problems: Problems Problem Status Onset Hematoma of left lower extremity Acute Supratherapeutic INR Acute Anxiety and depression Acute Clostridium difficile infection Acute Diarrhea, infectious, adult Acute Pseudogout Acute Tobacco abuse Acute
[2016-10-06 05:57] LABS: INR 1.25 (0.83-1.16); PROTIME(PATIENT) 15.7 SEC (12.0-15.0)
[2016-10-06] MEDS: oxyCODONE IR 5 MG TAB PO PRN ×5 (06:02→20:59)
[2016-10-06] MEDS: NICOTINE 21 MG/24 HR PATCH TD SCH (07:53)
[2016-10-06] MEDS: PREGABALIN 100 MG CAP PO SCH ×3 (07:54→20:59)
[2016-10-06] MEDS: CHOLECALCIFEROL VIT D3 2,000 UNITS TAB/CAP PO SCH (07:54)
[2016-10-06] MEDS: PANTOPRAZOLE SODIUM 40 MG TAB PO SCH ×3 (07:54→20:59)
[2016-10-06] MEDS: LORazepam 1 MG TAB PO SCH ×2 (07:54→20:58)
[2016-10-06] MEDS: SENNOSIDES/DOCUSATE SODIUM TAB PO SCH ×2 (07:54→20:59)
[2016-10-06] MEDS: CYANO/VITAMIN B12 1000 MCG TAB PO SCH (07:54)
[2016-10-06] MEDS: TAMSULOSIN HCL 0.4 MG CAP PO SCH (07:54)
[2016-10-06] MEDS: POLYETHYLENE GLYCOL 3350 17 GM PKT PO SCH (07:55)
--- NOTE | 2016-10-06 09:49 | HOSPPROG ---
Hospitalist Progress Note Assessment/Plan: 71 yo M w/hx of a fib as well as remote PE on chronic AC presenting with supratherapeutic INR and leg pain and large calf hematoma. # calf hematoma not likely compartment syndrome/pain is less/ palpable pulses INR is 1.25 elevating his leg zahra hose on/ pain is better today # supratherapeutic INR resolved with treatment of Vitamin K was started recently on Coumadin and presented w an INR of 8 hx of PE and hx of AFib will defer to cardiology as when to resume # a fib: reviewed potline monitor and is in sinus rhythm CHADS-vasc score is 1 treatment per cardiology # hx of PE: remote, as above, no longer requiring tx # copd: chronic w/o e/o acute exacerbation on O2 today # dispo:pending/ may go later today or tomorrow morning/ reviewed his care w Dr Garcia/ he will s/o. Patient will need f/u with Dr Chino and Cardiology. Subjective: Nicolas is nervous about being dc/ worried about walking around. Left leg pain is better today. Objective: Vital Signs Temp Pulse Resp BP Pulse Ox 36.6 C 86 19 121/73 H 90 L 10/06/16 07:15 10/06/16 07:15 10/06/16 07:15 10/06/16 07:15 10/06/16 07:15 10/05/16 10/06/16 10/07/16 05:59 05:59 05:59 Intake Total 900 880 Output Total 2049 1200 525 Balance -1150 -320 -525 PT 15.7 SEC (12.0-15.0) H 10/06/16 04:55 INR 1.25 (0.83-1.16) H 10/06/16 04:55 - Physical Exam Constitutional: no apparent distress, appears nourished, not in pain Eyes: PERRL Ears, Nose, Mouth, Throat: hearing normal Cardiovascular: regular rate and rhythym Respiratory: no respiratory distress, reduced air movement (bibasilar) Gastrointestinal: normoactive bowel sounds Skin: warm, other (ecchymosis on left posterior calf area and behind the knee) Musculoskeletal: generalized weakness Neurologic: AAOx3 Psychiatric: interacting appropriately, not encephalopathic ICD10 Worksheet Patient Problems: Problems Problem Status Onset Hematoma of left lower extremity Acute Supratherapeutic INR Acute Anxiety and depression Acute Clostridium difficile infection Acute Diarrhea, infectious, adult Acute Pseudogout Acute Tobacco abuse Acute
--- NOTE | 2016-10-06 09:59 | SOAPPROG ---
SOAP Progress Note Assessment/Plan: 10/06/16 09:56 Assessment: Calf swollen but less so. good cap refill. bounding DR pulse. Plan: Will try BABITA and ambulation. If tolerates, may consider discharge with follow up with Dr. Chino' group in ~ 10 days Subjective: no complaints beyond restriction to bed with leg elevation Objective: Vital Signs Temp Pulse Resp BP Pulse Ox 36.6 C 86 19 121/73 H 90 L 10/06/16 07:15 10/06/16 07:15 10/06/16 07:15 10/06/16 07:15 10/06/16 07:15 10/05/16 10/06/16 10/07/16 05:59 05:59 05:59 Intake Total 900 880 Output Total 2050 1200 525 Balance -1150 -320 -525 PT 15.7 SEC (12.0-15.0) H 10/06/16 04:55 INR 1.25 (0.83-1.16) H 10/06/16 04:55 - Time Spent With Patient Time Spent With Patient: 15 Physical Exam - Physical Exam General Appearance: alert, no apparent distress Extremities: other (Swelling less, Cap refill < 3 sec, Bounding DP pulse, Foot warm) ICD10 Worksheet Patient Problems: Problems Problem Status Onset Hematoma of left lower extremity Acute Supratherapeutic INR Acute Anxiety and depression Acute Clostridium difficile infection Acute Diarrhea, infectious, adult Acute Pseudogout Acute Tobacco abuse Acute
--- NOTE | 2016-10-06 14:11 | PDCARPN ---
Cardiology Progress Note Chief Complaint: Ongoing left lower extremity calf pains Assessment/Plan: Assessment: 10-06-16 Patient with some improvement in symptoms noted, but there continues to be pain to the point that the patient can not (per his reports) easily ambulate. No chest pains or pressure. Telemetry continues to reveal normal sinus rhythm. 10-05-16 Patient has appreciated improvement in leg pains. Trauma with note and work up not suggestive of compartment syndrome. INR has normalized, and given the haematoma, and CVA risk (with atrial fibrillation) would maintain cessation of therapy for the time being. Fair sleep overnight. No cardiovascular complaints of chest pains or pressure. Pain meds have resulted in control of the discomfort to the left lower extremity. 10-04-16 Patient is a 71 y/o male, known to [facility] (Dr. Venu Hatfield), with history of pAF (on coumadin at present with [id number] score of 2), COPD, depression, BPH s/p TURP, arthralgias, and esophageal stricture, who presented to [facility] yesterday with complaints of left lower extremity pains. Initial concerns about DVT with history of pulmonary embolism (1990), but labs revealed a supratherapeutic INR ( >8). Ultrasound with large haematoma noted (10X4X2). Given the INR and this finding, Trauma service reportedly assessed the leg for compartment syndrome. Reports that this was not noted at the time of assesssment in the ER. Pains to the leg were noted overnight, and the leg continues to be painful and rather taught. Distal pulses were noted today. No cardiovascular complaints of chest pains or pressure. No PND or orthopnea. From a cardiac perspective, patient was previously on NOAC therapy (Eliquis), but was concerned about the inability to monitor levels, and was switched to Coumadin (dosed at 5 mg per day). No reassessment of the INR was obtained for reasons not clear. INR last night was 2.68 (down from 8.36), but today, INR was elevated to 4.06. Telemetry with normal sinus rhythm yesterday. Plan: (1) would continue hold on anticoagulation - likely to the point that patient has been discharged and follows up with cardiology in the outpatient setting (2) PT/OT assistance with ambulation recommendations? Subjective: left lower extremity calf pain Reviewed/Discussed With: family, hospitalist Time Spent With Patient: 15 minutes Objective: Vital Signs (8 Hrs) Temp Pulse Resp BP Pulse Ox 10/06/16 11:35 36.8 C 83 21 H 120/69 90 L 10/06/16 10:29 98 18 83 L 10/06/16 10:16 83 L 10/06/16 07:15 36.6 C 86 19 121/73 H 90 L Intake/Output (24 Hrs) 10/05/16 10/06/16 10/07/16 05:59 05:59 05:59 Intake Total 900 880 Output Total 2049 1200 525 Balance -1680 -320 -525 Intake: Oral (ml) 900 880 Output: Urine (ml) 2049 1200 525 Urinal 2049 1200 525 Other: Intake Quantity Yes Yes Sufficient Number of Voids Urinal 3 2 Number of Stools Toilet 1 Result Diagrams: 10/04/16 05:12 10/04/16 05:12 Telemetry: normal sinus rhythm - Physical Exam Constitutional: WDWN, healthy appearing, no apparent distress Eyes: PERRL, EOMI Ears, Nose, Mouth, Throat: moist mucous membranes Cardiovascular: regular rate and rhythm, no murmurs, no rubs, no gallops Peripheral Pulses: 2+: dorsalis-pedis (R), dorsalis-pedis (L) Respiratory: clear to auscultate bilat, no crackles, no wheezes Gastrointestinal: normoactive bowel sounds Skin: no rashes, other (edema to the left calf) Musculoskeletal: muscular tenderness Neurologic: AAOx3, CN II-XII grossly intact Psychiatric: cooperative, interactive, following commands ICD10 Worksheet Patient Problems: Problems Problem Status Onset Hematoma of left lower extremity Acute Supratherapeutic INR Acute Anxiety and depression Acute Clostridium difficile infection Acute Diarrhea, infectious, adult Acute Pseudogout Acute Tobacco abuse Acute
[2016-10-07] MEDS: oxyCODONE IR 5 MG TAB PO PRN (04:49)
[2016-10-07 05:21] LABS: INR 1.25 (0.83-1.16); PROTIME(PATIENT) 15.7 SEC (12.0-15.0)
[2016-10-07 08:01] VITALS: RESP 18
[2016-10-07] MEDS: PREGABALIN 100 MG CAP PO SCH (08:15)
[2016-10-07] MEDS: NICOTINE 21 MG/24 HR PATCH TD SCH (08:15)
[2016-10-07] MEDS: TAMSULOSIN HCL 0.4 MG CAP PO SCH (08:15)
[2016-10-07] MEDS: CYANO/VITAMIN B12 1000 MCG TAB PO SCH (08:15)
[2016-10-07] MEDS: POLYETHYLENE GLYCOL 3350 17 GM PKT PO SCH (08:15)
[2016-10-07] MEDS: LORazepam 1 MG TAB PO SCH (08:16)
[2016-10-07] MEDS: SENNOSIDES/DOCUSATE SODIUM TAB PO SCH (08:16)
[2016-10-07] MEDS: CHOLECALCIFEROL VIT D3 2,000 UNITS TAB/CAP PO SCH (08:16)
[2016-10-07] MEDS ORDERED: FUROSEMIDE 20 MG TAB PO ONE (08:29)
--- NOTE | 2016-10-07 08:44 | HOSPPROG ---
Hospitalist Progress Note Assessment/Plan: 71 yo M w/hx of a fib as well as remote PE on chronic AC presenting with supratherapeutic INR and leg pain and large calf hematoma. # calf hematoma not likely compartment syndrome/pain is less/ palpable pulses INR is 1.25 elevating his leg zahra hose on/ pain is better today able to ambulate in room # supratherapeutic INR resolved with treatment of Vitamin K was started recently on Coumadin and presented w an INR of 8 hx of PE and hx of AFib will defer to cardiology as when to resume # a fib: reviewed petroleum geology faculty member and is in sinus rhythm CHADS-vasc score is 1 treatment per cardiology # hx of PE: remote, as above, no longer requiring tx # copd: chronic w/o e/o acute exacerbation on O2 today hx of smoking may need O2 at dc # dispo: today with home care/ patient doesn't want to go to a SNF/will have him f/u with Dr Chino and Cardiology this next week Subjective: Nicolas says his left lower leg hurts, but is able to ambulate Objective: Vital Signs Temp Pulse Resp BP Pulse Ox 36.9 C 90 18 129/76 H 93 10/07/16 08:00 10/07/16 08:00 10/07/16 08:00 10/07/16 08:00 10/07/16 08:00 10/06/16 10/07/16 10/08/16 05:59 05:59 05:59 Intake Total 880 750 Output Total 1200 1225 Balance -320 -475 PT 15.7 SEC (12.0-15.0) H 10/07/16 05:03 INR 1.25 (0.83-1.16) H 10/07/16 05:03 - Physical Exam Constitutional: uncomfortable Eyes: PERRL Ears, Nose, Mouth, Throat: moist mucous membranes, hearing normal Cardiovascular: regular rate and rhythym Respiratory: no respiratory distress Gastrointestinal: normoactive bowel sounds Skin: warm, other (left calf swollen, tender) Neurologic: AAOx3 Psychiatric: interacting appropriately, not anxious, not encephalopathic ICD10 Worksheet Patient Problems: Problems Problem Status Onset Hematoma of left lower extremity Acute Supratherapeutic INR Acute Anxiety and depression Acute Clostridium difficile infection Acute Diarrhea, infectious, adult Acute Pseudogout Acute Tobacco abuse Acute
--- NOTE | 2016-10-07 08:54 | PDIAF ---
- Diagnosis Diagnosis: left calf hematoma Code Status: Full Code - Medication Management Discharge Medications: Medications to Continue on Transfer Cholecalciferol Vit D3 [Vitamin D3 2000 units tab (OTC)] 4,000 units PO DAILY [Last Taken 10/03/16] Cyanocobalamin [Vitamin B12 (*)] 2,000 mcg PO DAILY 10/03/16 [Last Taken ] Herbals/Supplements -Info Only 1 ea PO DAILY 10/03/16 [Last Taken Unknown] LORazepam [Ativan (*)] 1 mg PO BID 10/03/16 [Last Taken 10/03/16] Pantoprazole Sodium [Protonix 40mg (*)] 40 mg PO BID 10/03/16 [Last Taken ] Percocet 5/325 (*) 1.5 tab PO BID PRN 10/03/16 [Last Taken 10/03/16] Pregabalin [LYRICA] 100 mg PO TID 10/03/16 [Last Taken 10/03/16] Acetaminophen [Tylenol 325mg (*)] 650 mg PO Q4HRS PRN #0 tab 10/07/16 [Last Taken Unknown] Polyethylene Glycol 3350 [Miralax 17 gm (*)] 17 gm PO DAILY pkt 10/07/16 [Last Taken Unknown] Sennosides/Docusate Sodium [Senokot-S] 1 - 2 tab PO BID tab 10/07/16 [Last Taken Unknown] Tamsulosin HCl [Flomax 0.4 MG (*)] 0.4 mg PO DAILY #10 cap 10/07/16 [Last Taken Unknown] Discharge Medications: Refer to the Discharge Home Medication list for PRN reason. - Orders Services needed: Home Care, Registered Nurse, Physical Therapy, Occupational Therapy Home Care Face to Face: I certify that this patient was under my care and that I had the required [id number] encounter meeting the encounter requirements on the discharge day. My findings support the fact that the patient is homebound as defined in CMS Chapter 7 Medicare Benefits Manual 30.1.1, The condition of the patient is such that there exists a normal inability to leave home and consequently, leaving home would require a considerable and taxing effort. Diet Recommendation: no restrictions on diet Diet Texture: Regular Texture Diet Deon Stockings Discontinue Date: were daily Activity/Weight Bearing Restrictions: wbat, elevate left leg throughout the day above your heart, do gently range of motion with the ankle, use heat, not ice on left calf Additional: do not resume coumadin until you talk with Cardiology. Make appts to see the Dr Chino and the resp ther this week. - Follow Up Care Current Providers and Referrals: Evangelina Moreno MD [Primary Care Provider] - As per Instructions Real Chino MD [Medical Doctor] - Frank Etienne MD [Medical Doctor] -
[2016-10-07 11:42] VITALS: BP 112/69; PULSE 89; TEMP 98.9; O2SAT 92
--- NOTE | 2016-10-07 13:37 | GDS ---
[f rep st] DISCHARGE SUMMARY DISCHARGE DIAGNOSES: 1. Left calf hematoma secondary to being anticoagulated. 2. Supratherapeutic INR. 3. Atrial fibrillation. 4. History of a remote pulmonary embolism. 5. Chronic obstructive pulmonary disease with mild exacerbation. CONSULTATIONS: 1. Rohan Garcia MD with Surgical Services. 2. Frank Etienne MD with Cardiology Services. BRIEF HISTORY: The patient is a 71-year-old gentleman who has a past medical history of atrial fibrillation, and a history of a remote PE. He presented with left leg pain and swelling in the setting of an INR that was 8. He was recently switched to Coumadin from Eliquis by his night custodian approximately 2 weeks prior to his admission. He had not checked his INR recently. He had banged his left lower leg a couple times, and noted he had swelling and that it became very tight. He was admitted and evaluated by the Surgical Team to monitor for any type of compartment syndrome. His leg was elevated throughout his stay. He was transfused 2 units of FFP, his INR is completely reversed on discharge. He will further follow up with Cardiology as to when to restart or if to restart the Coumadin. He has been in sinus rhythm throughout his stay. HOSPITAL COURSE: 1. Left calf hematoma. His leg is markedly better. He has BABITA hose on. He is able to ambulate in the room. INR is 1.25. 2. Supratherapeutic INR. Resolved. 3. Atrial fibrillation. His CHADS-VASc score is 1. Treatment per Cardiology. 4. History of pulmonary emboli. This is remote. 5. Chronic obstructive pulmonary disease likely exacerbation during his stay. Will discharge him on oxygen and have him follow up with his primary care provider in the outpatient setting. PENDING LABS AND TESTS: None. CONDITION AT DISCHARGE: Stable. Blood pressure is 112/69, heart rate is 89, respiratory rate is 18, O2 saturation 92% on 3 L. Temperature 37.2 Celsius. MEDICATIONS AT DISCHARGE: Please see the EMR. He has been instructed to hold the Coumadin until he talks to Cardiology. FOLLOWUP: 1. Follow up with Dr. Chino. 2. If he develops further tightness in the left calf area, increased pain or swelling, to return to the ER. Greater than 35 minutes discharging and coordinating care. /[id number]/MODL MTDD
== END 2016-10-07 12:26 | disposition home or self-care (01) | DRG 605 ==
LOC: INTOOBSV 13:08 → F3E 15:59 → OBSVTOIN 10-04 13:00
PROVIDERS: ADMIT Internal Medicine; ATTEND Internal Medicine
PROC: 30233K1 Transfusion of Nonautologous Frozen Plasma into Peripheral Vein, Percutaneous Approach (ICD-10-PCS; principal; 2016-10-04)
DX: S80.12XA Contusion of left lower leg, initial encounter (principal); R79.1 Abnormal coagulation profile; J44.1 Chronic obstructive pulmonary disease with (acute) exacerbation; W22.8XXA Striking against or struck by other objects, initial encounter; Y92.096 Garden or yard of other non-institutional residence as the place of occurrence of the external cause; K21.9 Gastro-esophageal reflux disease without esophagitis; I48.0 Paroxysmal atrial fibrillation; F17.210 Nicotine dependence, cigarettes, uncomplicated; N40.0 Benign prostatic hyperplasia without lower urinary tract symptoms; Z79.01 Long term (current) use of anticoagulants; Z86.711 Personal history of pulmonary embolism; Z98.1 Arthrodesis status
CPT/HCPCS: 96374; 97161-GP; 97162-GP; 97166-GO; 97530-GO; 97530-GP; 97535-GO; G0378; G8978-GP-CK; G8979-GP-CI; G8987-GO-CJ; G8988-GO-CI; J1170; J3430; P9017

== ENCOUNTER 2016-10-07 19:22 | Inpatient (IN) | payer OTHER, MEDICARE ==
--- NOTE | 2016-10-07 20:42 | EDPHY ---
H & P Time Seen by Provider: 10/07/16 19:33 HPI/ROS: Chief complaint. Leg pain HPI. 71-year-old male discharge this afternoon after here being over anticoagulated developing a calf hematoma secondary to minor trauma. He got home and was resting and keeping his leg elevated however he was unable to stand or walk. Instructions that were given on discharge were to return for worsening pain or swelling which he has both. The patient had been on Eliquis for atrial fibrillation but he did not like the medication so he was switched to Coumadin. He did have a previous DVT/PE. He had minor injury working in the [employer]. The after 2 weeks of Coumadin he had his INR checked it was found to be 8. He got vitamin K and FFP. Ultrasound on October 04 showed a 10 x 4 cm hematoma. He was seen by surgeon and there was discussion of incision and drainage versus conservative care. Conservative care was opted for. ROS Constitutional. no fever/chills, no weakness Eyes. no problems with vision ENT. no sore throat, no nasal drainage Cardiovascular. no chest pain Respiratory. no shortness of breath, no cough Abdominal. no abdominal pain, no nausea/vomiting, no diarrhea . no problems urinating MS. Pain and swelling to left calf Skin. no rash Lymph. no swollen glands Neuro. Unable to walk Past Medical/Surgical History: Past medical history PE, COPD, BPH, GERD, pseudogout, CHF Social History: , daily smoker, no alcohol Smoking Status: Current every day smoker Physical Exam: General Appearance: Alert well-developed male, moderate distress vital signs are stable Eyes: Pupils equal and round no pallor or injection. ENT, Mouth: Mucous membranes are moist. Respiratory: There are no retractions, lungs are clear to auscultation. Cardiovascular: Regular rate and rhythm. Gastrointestinal: Abdomen is soft and nontender, no masses, bowel sounds normal. Neurological: Awake and alert, sensory and motor exams grossly normal. Skin: Warm and dry, no rashes. Musculoskeletal: Neck is supple nontender. Extremities left calf with hematoma and bruising and swelling and pain to palpation. Dorsalis pedis pulse is pole and bounding. Sensation is normal Psychiatric: Patient is oriented X 3, there is no agitation. Constitutional: Initial Vital Signs Temperature (C) 37.2 C 10/07/16 19:27 Heart Rate 99 10/07/16 19:27 Respiratory Rate 18 10/07/16 19:27 Blood Pressure 121/79 H 10/07/16 19:27 O2 Sat (%) 93 10/07/16 19:27 O2 Delivery Mode Room Air Allergies/Adverse Reactions: No Known Allergies Allergy (Unverified 10/07/16 19:29) Home Medications: Medication Instructions Recorded Cholecalciferol Vit D3 [Vitamin D3 4,000 units PO DAILY 10/03/16 2000 units tab (OTC)] Cyanocobalamin [Vitamin B12 (*)] 2,000 mcg PO DAILY 10/03/16 Herbals/Supplements -Info Only 1 ea PO DAILY 10/03/16 LORazepam [Ativan (*)] 1 mg PO BID 10/03/16 Pantoprazole Sodium [Protonix 40mg 40 mg PO BID 10/03/16 (*)] Percocet 5/325 (*) 1.5 tab PO BID PRN 10/03/16 Pregabalin [LYRICA] 100 mg PO TID 10/03/16 Acetaminophen [Tylenol 325mg (*)] 650 mg PO Q4HRS PRN #0 tab 10/07/16 Polyethylene Glycol 3350 [Miralax 17 gm PO DAILY pkt 10/07/16 17 gm (*)] Sennosides/Docusate Sodium 1 - 2 tab PO BID tab 10/07/16 [Senokot-S] Tamsulosin HCl [Flomax 0.4 MG (*)] 0.4 mg PO DAILY #10 cap 10/07/16 Medical Decision Making - Diagnostics Imaging Results: Imaging Impressions Extremity Venous Study 10/07/16 20:57 Impression: 1. No deep venous thrombosis left leg. 2. Larger Left calf hematoma. Findings and recommendations discussed with Emergency Department physician, JOSE MANUEL PONCE at 21:35 hour, 10/07/2016. Final report concurs with initial preliminary interpretation. Ultrasound of the left lower extremity reviewed by me and then discussed with shows the hematoma is larger tonight measuring 14.3 x 7.2 cm Procedures: IV normal saline. ED Course/Re-evaluation: On re-evaluation the patient is stable. The patient and family and I discussed treatment plan including recommendation for admission. They expressed understanding and agreement I consulted and discussed the case with Dr. Garcia, surgery, who will see the patient and take the patient to the OR in the morning. I consulted and discussed the case with Dr. Shah, hospitalist, who agrees to the admission Differential Diagnosis: I considered DVT, expanding hematoma, compartment syndrome - Data Points Laboratory Results: 10/07/16 21:20 PT 14.7 SEC SEC (12.0-15.0) INR 1.15 (0.83-1.16) APTT 30.5 SEC SEC (23.0-38.0) Medications Given: Discontinued Medications Oxycodone/Acetaminophen (Percocet 5/325) 1 tab PO EDNOW ONE Stop: 10/07/16 20:58 Last Admin: 10/07/16 21:08 Dose: 1 tab Departure - Departure Disposition: [facility] [place] Inpatient Acute Clinical Impression: Hematoma of left lower extremity Qualifiers: Encounter type: subsequent encounter Qualified Code(s): S80.12XD - Contusion of left lower leg, subsequent encounter Condition: Fair Referrals: Evangelina Moreno MD [Primary Care Provider] - As per Instructions
[2016-10-07] MEDS ORDERED: OXYCODONE/APAP 5/325 TAB PO ONE (20:57)
[2016-10-07 21:48] LABS: INR 1.15 (0.83-1.16); PROTIME(PATIENT) 14.7 SEC (12.0-15.0)
[2016-10-07 21:49] LABS: APTT 30.5 SEC (23.0-38.0)
[2016-10-07 22:14] LABS: % IMMATURE GRANULYOCYTES 1.1 % (0.0-1.1); ABSOLUTE IMMATURE GRANULOCYTES 0.08 10^3/uL (0.00-0.10); ADD DIFF? NO; ADD MORPH? NO; ADD SCAN? NO; ATYPICAL LYMPHOCYTE FLAG 0 (0-99); FRAGMENT RBC FLAG 0 (0-99); LEFT SHIFT FLG 10 (0-99); LIPEMIA HEMOLYSIS FLAG 90 (0-99); MEAN CELL HEMOGLOBIN CONCENTR. 34.1 g/dL (32.4-36.7); MEAN CELL VOLUME 96.9 fL (81.5-99.8); MEAN PLATELET VOLUME 8.8 fL (8.7-11.7); PLATELET CLUMPS FLAG 0 (0-99); PLATELET COUNT 181 10^3/uL (150-400); RED BLOOD CELL COUNT 4.54 10^6/uL (4.40-6.38); RED CELL DISTRIBUTION WIDTH 12.7 % (11.5-15.2)
[2016-10-07 22:19] LABS: ANION GAP 11 mEq/L (8-16); CALCIUM 8.8 mg/dL (8.5-10.4); CARBON DIOXIDE 23 mEq/l (22-31); CHLORIDE 99 mEq/L (97-110); GLOMERULAR FILTRATION RATE > 60; GLUCOSE 150 mg/dL (70-100); POTASSIUM 4.5 mEq/L (3.5-5.2); SODIUM 133 mEq/L (134-144)
[2016-10-07] MEDS ORDERED: HYDROmorphONE/DILAUDID 1 MG/ML SYR IVP PRN (22:45)
[2016-10-07] MEDS ORDERED: ALBUTEROL 3 ML DEYVIAL IH PRN (22:45)
[2016-10-07] MEDS ORDERED: ONDANSETRON 4 MG/2 ML VIAL IVP PRN (22:45)
[2016-10-07] MEDS ORDERED: ACETAMINOPHEN 325 MG TAB PO PRN (22:45)
[2016-10-07] MEDS ORDERED: ONDANSETRON DISINTEGRATING 4 MG TAB PO PRN (22:45)
--- NOTE | 2016-10-07 23:59 | CPEKG ---
Heart Rate: 78 RR Interval: 769 P-R Interval: 116 QRSD Interval: 96 QT Interval: 384 QTC Interval: 438 P Clifford: 126 QRS Clifford: 158 T Wave Clifford: 103 EKG Severity - ABNORMAL ECG - EKG Impression: SINUS RHYTHM EKG Impression: LOW VOLTAGE IN FRONTAL LEADS EKG Impression: REPOL ABNRM SUGGESTS ISCHEMIA, LATERAL LEADS Electronically Signed By: Frank Etienne 08-Oct-2016 23:59:22
[2016-10-08] MEDS: HYDROCODONE/APAP 5/325 TAB PO PRN ×3 (00:01→20:47)
[2016-10-08] MEDS ORDERED: PANTOPRAZOLE SODIUM 40 MG TAB PO ONE (00:30)
[2016-10-08] MEDS ORDERED: PREGABALIN 50 MG CAP PO ONE (00:30)
--- NOTE | 2016-10-08 02:27 | PDGENHP ---
History and Physical - History of Present Illness Patient is a 71-year-old male with a history of AFib, previously on Coumadin, COPD, remote history of PE and recent hospitalization at [facility] on 10/03 for supratherapeutic INR and L calf hematoma. On that admission, INR was noted to be >8 and he reported that he had hit his calf area, causing the hematoma. Patient's INR was reversed using FFP and vitamin K and the hematoma was managed on conservatively, after surgical consultation. Patient reports on the morning of 10/07 he was able to walk on his lower extremity without significant pain and he was discharged from [facility] later that day. He states he went home, took a nap and then upon waking from his nap attempted to walk and had significant pain in his calf. He reports a sensation of blood flowing into his calf, his lower extremity became significantly more edematous and significantly painful. He denies any repeat trauma to the area. Given the recurrence of the symptoms, he decided to come to the ED for further evaluation. On arrival to the ED he was afebrile, hemodynamically stable. Labs showed stable H/H. Doppler of the LLE revealed interval increase in calf hematoma size. General surgery was consulted and recommended surgical evaluation in the AM. He was then admitted to the hospitalist service for further management. History Information - Allergies/Home Medication List Allergies/Adverse Reactions: No Known Allergies Allergy (Unverified 10/07/16 19:29) Home Medications: Cholecalciferol Vit D3 [Vitamin D3 2000 units tab (OTC)] 4,000 units PO DAILY [Last Taken 10/03/16] Cyanocobalamin [Vitamin B12 (*)] 2,000 mcg PO DAILY 10/03/16 [Last Taken ] Herbals/Supplements -Info Only 1 ea PO DAILY 10/03/16 [Last Taken Unknown] LORazepam [Ativan (*)] 1 mg PO BID 10/03/16 [Last Taken 10/03/16] Pantoprazole Sodium [Protonix 40mg (*)] 40 mg PO BID 10/03/16 [Last Taken ] Percocet 5/325 (*) 1.5 tab PO BID PRN 10/03/16 [Last Taken 10/03/16] Pregabalin [LYRICA] 100 mg PO TID 10/03/16 [Last Taken 10/03/16] I have personally reviewed and updated: family history, medical history, social history, surgical history - Past Medical History atrial fibrillation, CHF, COPD, GERD, pulmonary embolism (1990) Additional medical history: BPH. lumbar radiculopathy. pseudogout. c diff - Surgical History Reports: spinal surgery (spinal fusion) Additional surgical history: turp. elbow surgery. esophageal stricture dilation - Family History Positive for: non-pertinent - Social History Smoking Status: Current every day smoker Alcohol Use: None Drug Use: None Additional social history: , lives with his Review of Systems ROS: 10pt was reviewed & negative except for what was stated in HPI & below Physical Exam Temp Pulse Resp BP Pulse Ox 36.8 C 80 18 124/74 H 92 10/07/16 22:36 10/07/16 22:36 10/07/16 22:36 10/07/16 22:36 10/07/16 22:36 O2 (L/minute) 2 Constitutional: no apparent distress, appears nourished, not in pain Eyes: PERRL, anicteric sclera, EOMI Ears, Nose, Mouth, Throat: moist mucous membranes, hearing normal, ears appear normal, no oral mucosal ulcers Cardiovascular: regular rate and rhythym, no murmur, rub, or gallop, pulses symmetric bilaterally, edema (LLE), No JVD Peripheral Pulses: 2+: dorsalis-pedis (R), dorsalis-pedis (L) Respiratory: no respiratory distress, no rales or rhonchi, clear to auscultation Gastrointestinal: normoactive bowel sounds, soft, non-tender abdomen, no palpable masses, No tenderness, No guarding, No rebound Genitourinary: no bladder fullness, no bladder tenderness Skin: warm, normal color, no rashes or abrasions, no fluctuance, no induration, No mottled Musculoskeletal: other (LLE with ecchymosis and firm edema in calf; tender to palpation, but dp and PT pulses 2+, neuro intact) Neurologic: AAOx3, sensation intact bilaterally, CN II-XII Intact, No weakness, No numbness, No facial droop Psychiatric: interacting appropriately, not anxious, not encephalopathic, thought process linear Lab Data & Imaging Review 10/07/16 21:20 10/07/16 21:20 WBC 7.26 10^3/uL (3.80-9.50) 10/07/16 21:20 RBC 4.54 10^6/uL (4.40-6.38) 10/07/16 21:20 Hgb 15.0 g/dL (13.7-17.5) 10/07/16 21:20 Hct 44.0 % (40.0-51.0) 10/07/16 21:20 MCV 96.9 fL (81.5-99.8) 10/07/16 21:20 MCH 33.0 pg (27.9-34.1) 10/07/16 21:20 MCHC 34.1 g/dL (32.4-36.7) 10/07/16 21:20 RDW 12.7 % (11.5-15.2) 10/07/16 21:20 Plt Count 181 10^3/uL (150-400) 10/07/16 21:20 MPV 8.8 fL (8.7-11.7) 10/07/16 21:20 Neut % (Auto) 65.3 % (39.3-74.2) 10/07/16 21:20 Lymph % (Auto) 15.8 % (15.0-45.0) 10/07/16 21:20 Darke % (Auto) 16.1 % (4.5-13.0) H 10/07/16 21:20 Eos % (Auto) 1.0 % (0.6-7.6) 10/07/16 21:20 Baso % (Auto) 0.7 % (0.3-1.7) 10/07/16 21:20 Nucleat RBC Rel Count 0.0 % (0.0-0.2) 10/07/16 21:20 Absolute Neuts (auto) 4.74 10^3/uL (1.70-6.50) 10/07/16 21:20 Absolute Lymphs (auto) 1.15 10^3/uL (1.00-3.00) 10/07/16 21:20 Absolute Monos (auto) 1.17 10^3/uL (0.30-0.80) H 10/07/16 21:20 Absolute Eos (auto) 0.07 10^3/uL (0.03-0.40) 10/07/16 21:20 Absolute Basos (auto) 0.05 10^3/uL (0.02-0.10) 10/07/16 21:20 Absolute Nucleated RBC 0.00 10^3/uL (0-0.01) 10/07/16 21:20 Immature Gran % 1.1 % (0.0-1.1) 10/07/16 21:20 Immature Gran # 0.08 10^3/uL (0.00-0.10) 10/07/16 21:20 PT 14.7 SEC (12.0-15.0) 10/07/16 21:20 INR 1.15 (0.83-1.16) 10/07/16 21:20 APTT 30.5 SEC (23.0-38.0) 10/07/16 21:20 Sodium 133 mEq/L (134-144) L 10/07/16 21:20 Potassium 4.5 mEq/L (3.5-5.2) 10/07/16 21:20 Chloride 99 mEq/L (97-110) 10/07/16 21:20 Carbon Dioxide 23 mEq/l (22-31) 10/07/16 21:20 Anion Gap 11 mEq/L (8-16) 10/07/16 21:20 BUN 20 mg/dL (7-23) 10/07/16 21:20 Creatinine 1.0 mg/dL (0.7-1.3) 10/07/16 21:20 Estimated GFR > 60 10/07/16 21:20 Glucose 150 mg/dL (70-100) H 10/07/16 21:20 Calcium 8.8 mg/dL (8.5-10.4) 10/07/16 21:20 Visualized and Interpreted Chest x-ray results: Yes Chest X-Ray results: no infiltrate Visualized and Interpreted imaging results: Yes Interpretation: LE doppler: increasing size of L calf hematoma Visualized and Interpreted EKG results: Yes EKG Interpretation: Positive for: normal sinsus rhythm Assessment & Plan Assessment: patient is a 71-year-old male with a history of AFib, recent admission to [facility] for L calf hematoma in setting of minor trauma at the site and a significantly supratherapeutic INR. During this admission, his INR was reversed and hematoma was conservatively managed. He returns to the ED on the evening after discharge with new increased L calf pain and edema. ED LE doppler reveals interval increase in hematoma size. Plan: # L calf hematoma Lower extremity remains neurovascularly intact, despite interval increase in size of hematoma, as evidenced by LE ultrasound. General surgery was consulted by the ED and recommend surgical evacuation in AM. CBC shows H/H has not significantly changed, INR from this AM is normal. - npo after midnight - check AM cbc, INR - f/u general surgery recs - pain control prn # afib s/p cardioversion EKG shows sinus rhythm. Anticoagulation is being held due to above. Will resume rest of cardiac home meds, once verified. # osteoarthritis, chronic pain Stable, resume home med regimen # copd No respiratory distress, CXR clear. Nebs as needed. # dispo: admit to inpatient service for likely > 2 [place] stay # gen: NPO DVT ppx; scds Full code
[2016-10-08 04:35] LABS: ADD DIFF? YES; ADD MORPH? NO; ADD SCAN? NO; ATYPICAL LYMPHOCYTE FLAG 0 (0-99); FRAGMENT RBC FLAG 0 (0-99); HEMATOCRIT 46.1 % (40.0-51.0); HEMOGLOBIN 15.5 g/dL (13.7-17.5); LEFT SHIFT FLG 10 (0-99); LIPEMIA HEMOLYSIS FLAG 80 (0-99); MEAN CELL HEMOGLOBIN 32.4 pg (27.9-34.1); MEAN CELL HEMOGLOBIN CONCENTR. 33.6 g/dL (32.4-36.7); MEAN CELL VOLUME 96.4 fL (81.5-99.8); MEAN PLATELET VOLUME 8.6 fL (8.7-11.7); PLATELET CLUMPS FLAG 10 (0-99); PLATELET COUNT 176 10^3/uL (150-400); RED BLOOD CELL COUNT 4.78 10^6/uL (4.40-6.38); RED CELL DISTRIBUTION WIDTH 12.7 % (11.5-15.2)
[2016-10-08 04:43] LABS: INR 1.11 (0.83-1.16); PROTIME(PATIENT) 14.2 SEC (12.0-15.0)
[2016-10-08 04:44] LABS: APTT 28.9 SEC (23.0-38.0)
[2016-10-08 04:52] LABS: ANION GAP 10 mEq/L (8-16); CALCIUM 8.7 mg/dL (8.5-10.4); CARBON DIOXIDE 24 mEq/l (22-31); CHLORIDE 103 mEq/L (97-110); CREATININE 0.9 mg/dL (0.7-1.3); GLOMERULAR FILTRATION RATE > 60; GLUCOSE 147 mg/dL (70-100); MAGNESIUM 2.3 mg/dL (1.6-2.3); POTASSIUM 4.4 mEq/L (3.5-5.2); SODIUM 137 mEq/L (134-144)
[2016-10-08 05:34] LABS: PLATELET ESTIMATE ADEQUATE (ADEQ)
--- NOTE | 2016-10-08 10:52 | HOSPPROG ---
Hospitalist Progress Note Assessment/Plan: patient is a 71-year-old male with a history of AFib, recent admission to [facility] for L calf hematoma in setting of minor trauma at the site and a significantly supratherapeutic INR. During this admission, his INR was reversed and hematoma was conservatively managed. He returns to the ED after discharge with new increased L calf pain and edema. LE doppler reveals interval increase in hematoma size. Reviewed his care with Dr Garcia, no surgery indicated. # L calf hematoma reviewed his care with Dr Garcia supportive measures now no surgery indicated will order diet now patient didn't want to wear BABITA hose/ instructed on the importance of using this instructed importance of elevating his leg #nicotine dependence on patch cessation recommended # afib s/p cardioversion front desk monitor shows sinus OAC held due to the above # osteoarthritis, chronic pain Stable, resume home med regimen # copd Scheduled nebs since he is not very mobile # dispo: likely dc in the morning/ patient and family is willing to have HomeCare/ initially declined it, but ok with it now Subjective: Nicolas is feeling overall well, has some constipation. Objective: Vital Signs Temp Pulse Resp BP Pulse Ox 36.3 C 68 15 99/79 L 93 10/08/16 07:55 10/08/16 07:55 10/08/16 07:55 10/08/16 07:55 10/08/16 07:55 Laboratory Results 10/08/16 04:20 10/08/16 04:20 10/07/16 10/08/16 10/09/16 05:59 05:59 05:59 Intake Total 240 Output Total 400 Balance -160 PT 14.2 SEC (12.0-15.0) 10/08/16 04:20 INR 1.11 (0.83-1.16) 10/08/16 04:20 - Physical Exam Constitutional: chronically ill appearing Eyes: PERRL Ears, Nose, Mouth, Throat: hearing normal Cardiovascular: regular rate and rhythym Respiratory: no respiratory distress, reduced air movement (bases) Gastrointestinal: normoactive bowel sounds Skin: warm, other (left leg yellowish in color/ has some swelling, but much better. Palpable dp/pt pulses.) Musculoskeletal: no muscle tenderness (left calf) Neurologic: AAOx3 Psychiatric: interacting appropriately, not anxious ICD10 Worksheet Patient Problems: Problems Problem Status Onset Hematoma of left lower extremity Acute Anxiety and depression Acute Clostridium difficile infection Acute Diarrhea, infectious, adult Acute Pseudogout Acute Supratherapeutic INR Acute Tobacco abuse Acute
--- NOTE | 2016-10-08 11:24 | GCON ---
[f rep st] CONSULTATION GENERAL SURGERY FOLLOWUP CONSULTATION DATE OF CONSULTATION: 10/08/2016 HISTORY OF PRESENT ILLNESS: The patient had been 03 of October and I saw him first on the 04 of October. He had been over anticoagulated and had spontaneous bled into his left leg . The hematoma subsequently had settled in his calf. The clot was subcutaneous. We had hoped that it would resolve on its own with heat and elevation. He was discharged from the hospital on the . He came back to the ER that evening with increasing pain and, in fact, an increasing clot size by ultrasound. I was asked to see him for followup consultation. I saw him the morning of the . PHYSICAL EXAMINATION: His pain has dramatically resolved this morning. The ecchymosis has extended down to his ankle. The posterior left calf is now much less swollen and much less tender than it was last night. DISCUSSION: An extensive conversation with his family was carried out. This included a discussion of the reasons for anticoagulation regarding thromboembolism from a cardiac clot. I have explained to him that the anticoagulation had nothing to do with improving cardiac performance, but rather thromboembolism prophylaxis. I talked about the concerns for draining the fluid which include delay of wound healing and potential secondary infection. The fact that he is nontender at this point is a distinct improvement and mitigates against surgical intervention. He understands that a nonsurgical approach would include keeping his leg elevated and using a heating pad for 45 minutes 4 times a day. As he is feeling much better at this point, he no longer wishes to proceed with a surgical intervention and I feel this is appropriate. He does have a bounding dorsalis pedis pulse as he always had and he has an approximately 2-3 second capillary refill which is unchanged. Certainly, the calf is much less tender. He and the family understand and they have all agreed that a nonoperative approach is in his best interest. Certainly, should the situation change, surgical intervention can be re-considered. /[id number]/MODL MTDD
[2016-10-08] MEDS ORDERED: BISACODYL 10 MG SUPP PR ONE (11:38)
[2016-10-08] MEDS: IPRATROPIUM/ALBUTEROL 3 ML DEYVIAL IH SCH ×3 (12:22→20:36)
[2016-10-08] MEDS: OXYCODONE/APAP 5/325 TAB PO PRN ×2 (13:22→17:48)
[2016-10-08] MEDS: NICOTINE 21 MG/24 HR PATCH TD SCH (13:22)
[2016-10-08] MEDS: POLYETHYLENE GLYCOL 3350 17 GM PKT PO SCH (14:29)
[2016-10-08] MEDS: CHOLECALCIFEROL VIT D3 2,000 UNITS TAB/CAP PO SCH (14:29)
[2016-10-08] MEDS: TAMSULOSIN HCL 0.4 MG CAP PO SCH (14:30)
[2016-10-08] MEDS: PREGABALIN 100 MG CAP PO SCH ×2 (14:30→20:47)
[2016-10-08] MEDS: CYANO/VITAMIN B12 1000 MCG TAB PO SCH (14:30)
[2016-10-08] MEDS: PANTOPRAZOLE SODIUM 40 MG TAB PO SCH ×2 (14:36→20:48)
[2016-10-08] MEDS: SENNOSIDES/DOCUSATE SODIUM TAB PO SCH (20:46)
[2016-10-08] MEDS: LORazepam 1 MG TAB PO SCH (20:48)
[2016-10-08] MEDS ORDERED: PANTOPRAZOLE SODIUM 40 MG TAB PO SCH (21:00)
[2016-10-09] MEDS: HYDROCODONE/APAP 5/325 TAB PO PRN ×2 (00:53→06:12)
[2016-10-09] MEDS: IPRATROPIUM/ALBUTEROL 3 ML DEYVIAL IH SCH ×2 (05:40→11:14)
[2016-10-09 07:43] VITALS: BP 109/74; TEMP 97.9
[2016-10-09] MEDS: NICOTINE 21 MG/24 HR PATCH TD SCH (08:48)
[2016-10-09] MEDS: PANTOPRAZOLE SODIUM 40 MG TAB PO SCH (08:48)
[2016-10-09] MEDS: TAMSULOSIN HCL 0.4 MG CAP PO SCH (08:48)
[2016-10-09] MEDS: CHOLECALCIFEROL VIT D3 2,000 UNITS TAB/CAP PO SCH (08:48)
[2016-10-09] MEDS: LORazepam 1 MG TAB PO SCH (08:48)
[2016-10-09] MEDS: CYANO/VITAMIN B12 1000 MCG TAB PO SCH (08:49)
[2016-10-09] MEDS: POLYETHYLENE GLYCOL 3350 17 GM PKT PO SCH (08:49)
[2016-10-09] MEDS: PREGABALIN 100 MG CAP PO SCH (08:49)
[2016-10-09] MEDS ORDERED: CYANO/VITAMIN B12 1000 MCG TAB PO SCH (09:00)
[2016-10-09] MEDS ORDERED: POLYETHYLENE GLYCOL 3350 17 GM PKT PO SCH (09:00)
[2016-10-09] MEDS ORDERED: Herbals/Supplements -Info Only PO SCH (09:00)
[2016-10-09] MEDS ORDERED: CHOLECALCIFEROL VIT D3 2,000 UNITS TAB/CAP PO SCH (09:00)
[2016-10-09] MEDS ORDERED: TAMSULOSIN HCL 0.4 MG CAP PO SCH (09:00)
--- NOTE | 2016-10-09 09:14 | HOSPPROG ---
Hospitalist Progress Note Assessment/Plan: patient is a 71-year-old male with a history of AFib, recent admission to [facility] for L calf hematoma in setting of minor trauma at the site and a significantly supratherapeutic INR. During this admission, his INR was reversed and hematoma was conservatively managed. He returns to the ED after discharge with new increased L calf pain and edema. LE doppler reveals interval increase in hematoma size. # L calf hematoma reviewed his care with Dr Garcia supportive measures now no surgery indicated reviewed martha Valenzuela the importance of left leg elevation and wearing zahra hose #nicotine dependence on patch cessation recommended # afib s/p cardioversion inspector fuel hose shows sinus OAC held due to the above in sinus # osteoarthritis, chronic pain Stable, resume home med regimen # copd Scheduled nebs since he is not very mobile O2 levels better this morning # dispo: dc today/ has O2 set up at home/offered SNF to help with treatment/ he doesn't want this/ recommending home care Subjective: Nicolas is feeling well. He's worried he won't be able to elevate leg enough at home, likes being mobile. Objective: Vital Signs Temp Pulse Resp BP Pulse Ox 36.6 C 82 14 109/74 92 10/09/16 07:42 10/09/16 07:42 10/09/16 07:42 10/09/16 07:42 10/09/16 07:42 Laboratory Results 10/08/16 04:20 10/08/16 04:20 10/08/16 10/09/16 10/10/16 05:59 05:59 05:59 Intake Total 240 1000 Output Total 400 950 400 Balance -160 50 -400 PT 14.2 SEC (12.0-15.0) 10/08/16 04:20 INR 1.11 (0.83-1.16) 10/08/16 04:20 - Physical Exam Constitutional: no apparent distress, appears nourished, not in pain Eyes: PERRL Ears, Nose, Mouth, Throat: hearing normal Cardiovascular: regular rate and rhythym, no murmur, rub, or gallop Respiratory: no respiratory distress Gastrointestinal: normoactive bowel sounds Skin: warm, other (left lower extremity with much less swelling, skin bruised/ yellowish, strong palpable pulses) Neurologic: AAOx3 Psychiatric: interacting appropriately, not anxious ICD10 Worksheet Patient Problems: Problems Problem Status Onset Hematoma of left lower extremity Acute Anxiety and depression Acute Clostridium difficile infection Acute Diarrhea, infectious, adult Acute Pseudogout Acute Supratherapeutic INR Acute Tobacco abuse Acute
[2016-10-09] MEDS: SENNOSIDES/DOCUSATE SODIUM TAB PO SCH (09:19)
--- NOTE | 2016-10-09 10:32 | GDS ---
[f rep st] DISCHARGE SUMMARY DISCHARGE DIAGNOSES: 1. Left calf hematoma. 2. Nicotine dependence. 3. Atrial fibrillation, status post cardioversion. 4. Osteoarthritis. 5. Chronic obstructive pulmonary disease. HISTORY OF PRESENT ILLNESS: Briefly, patient is a 71-year-old male with a history of atrial fibrillation. He was recently admitted to [facility] for a left calf hematoma in the setting of a minor trauma with a supratherapeutic INR. During that admission, his INR was reversed with FFP, and his hematoma was conservatively managed. He presented to the emergency room after discharge with new increased left calf pain. His left extremity Doppler reveals an interval increase in the hematoma size. He was seen and evaluated by Dr. Garcia. At that time, the hematoma was not causing the patient any pain. No surgery was indicated. Today his left leg is markedly better. HOSPITAL COURSE: Per problem: 1. Left calf hematoma: Supportive measures. No surgery is indicated. I reviewed with the patient and his family that he must elevate his left leg when he gets home and to wear BABITA hose when he gets out of bed. 2. Nicotine dependence: Cessation has been recommended. He is on a patch. He will be on oxygen at home. I explained to him he should not smoke ever around oxygen. 3. Atrial fibrillation, status post cardioversion: He has been in sinus rhythm. His oral anticoagulation is held because of the hematoma. To further follow up with Cardiology. 4.Osteoarthritis, chronic: Home meds have been resumed. 5. COPD: He has been on scheduled nebulizer. His oxygen levels improved nicely. He already has oxygen setup at home from his previous admission. PENDING LABORATORIES AND TESTS: None. CONDITION AT DISCHARGE: Stable. Blood pressure is 109/79, heart rate is 80, respiratory rate is 14, O2 sats on 1 L are 95%, temperature is 36.6 Celsius. MEDICATIONS AT DISCHARGE: Please see the EMR. DISCHARGE INSTRUCTIONS: 1. To follow up with Dr. Real Chino in the outpatient setting. 2. Follow up with Cardiology .. Greater than 30 minutes discharging and coordinating care. /[id number]/MODL MTDD
[2016-10-09 11:21] VITALS: PULSE 83; RESP 24; O2SAT 95
== END 2016-10-09 13:40 | disposition home health service (06) | DRG 950 ==
LOC: F3N 23:15
PROVIDERS: ADMIT Internal Medicine; ATTEND Internal Medicine
DX: S80.12XD Contusion of left lower leg, subsequent encounter (principal); F17.200 Nicotine dependence, unspecified, uncomplicated; J44.9 Chronic obstructive pulmonary disease, unspecified; Z79.01 Long term (current) use of anticoagulants; Z86.711 Personal history of pulmonary embolism; Z86.718 Personal history of other venous thrombosis and embolism

== ENCOUNTER → 2016-10-27 | Outpatient (CLI) | payer OTHER, MEDICARE | LOC: BHFA 13:00 | PROVIDERS: ATTEND Internal Medicine Cardiovascular Disease | DX: I48.91 Unspecified atrial fibrillation (principal); S50.10XA Contusion of unspecified forearm, initial encounter ==

== ENCOUNTER → 2016-12-06 | Outpatient (CLI) | payer OTHER, MEDICARE | LOC: CIMAGING 11:10 | PROVIDERS: ATTEND Specialist | DX: R33.9 Retention of urine, unspecified (principal); K57.30 Diverticulosis of large intestine without perforation or abscess without bleeding; I25.10 Atherosclerotic heart disease of native coronary artery without angina pectoris | CPT/HCPCS: 74176-PO ==

== ENCOUNTER → 2017-03-06 | Outpatient (CLI) | payer OTHER, MEDICARE | LOC: FIMAGING 12:50 | PROVIDERS: ATTEND Physical Medicine & Rehabilitation | DX: M51.36 Other intervertebral disc degeneration, lumbar region (principal); M51.26 Other intervertebral disc displacement, lumbar region; R60.9 Edema, unspecified; Z98.1 Arthrodesis status ==

== ENCOUNTER → 2017-05-14 | Outpatient (CLI) | payer OTHER, MEDICARE | LOC: FIMAGING 11:58 | PROVIDERS: ATTEND Family Medicine | DX: J43.9 Emphysema, unspecified (principal); R91.1 Solitary pulmonary nodule; F17.200 Nicotine dependence, unspecified, uncomplicated; R29.0 Tetany; M85.80 Other specified disorders of bone density and structure, unspecified site; M96.1 Postlaminectomy syndrome, not elsewhere classified; D64.9 Anemia, unspecified; I25.10 Atherosclerotic heart disease of native coronary artery without angina pectoris ==

== ENCOUNTER → 2017-06-07 | Outpatient (CLI) | payer OTHER, MEDICARE | LOC: FIMAGING 11:51 | PROVIDERS: ATTEND Physical Medicine & Rehabilitation | DX: Z98.1 Arthrodesis status (principal); M16.0 Bilateral primary osteoarthritis of hip; M51.36 Other intervertebral disc degeneration, lumbar region; M51.26 Other intervertebral disc displacement, lumbar region; M41.86 Other forms of scoliosis, lumbar region; M51.35 Other intervertebral disc degeneration, thoracolumbar region; I70.0 Atherosclerosis of aorta ==

== ENCOUNTER → 2017-08-05 | Outpatient (CLI) | payer OTHER, MEDICARE | LOC: FIMAGING 07:54 | PROVIDERS: ATTEND Family Medicine | DX: M51.36 Other intervertebral disc degeneration, lumbar region (principal); Z98.890 Other specified postprocedural states; M51.86 Other intervertebral disc disorders, lumbar region; M53.86 Other specified dorsopathies, lumbar region; M48.061 Spinal stenosis, lumbar region without neurogenic claudication ==

== ENCOUNTER → 2018-09-17 | Outpatient (CLI) | payer OTHER, MEDICARE | LOC: BHFA 09:15 | PROVIDERS: ATTEND Internal Medicine Cardiovascular Disease | DX: I48.91 Unspecified atrial fibrillation (principal) ==

== ENCOUNTER → 2018-10-01 | Outpatient (CLI) | payer OTHER, MEDICARE | LOC: FIMAGING 09:42 | PROVIDERS: ATTEND Family Medicine | DX: R91.8 Other nonspecific abnormal finding of lung field (principal); R59.9 Enlarged lymph nodes, unspecified; I25.10 Atherosclerotic heart disease of native coronary artery without angina pectoris ==